=== PATIENT | female | born 1945 | race African-American/Black ===

== ENCOUNTER 2017-11-11 12:07 | Inpatient (IN) | payer MEDICARE, OTHER ==
[2017-11-11] MEDS ORDERED: Ondansetron ODT 4 MG TAB PO PRN (12:45)
[2017-11-11] MEDS ORDERED: Loperamide HCl 2 MG CAP PO PRN (12:45)
[2017-11-11] MEDS ORDERED: Acetaminophen 325 MG TAB PO PRN (12:45)
--- NOTE | 2017-11-11 13:47 | HP ---
HISTORY OF PRESENT ILLNESS: Ms. Jimenez is a very pleasant 75-year-old black female patient of Dr. Bernardo from [place] and [place]. She apparently fell at home, fractured her left hip. She was seen by Dr. Gandara had a total hip replacement done and was transferred to [facility]. Apparently the patient was supposed to be transferred here initially. Nonetheless, the patient came in today fo physical therapy and occupational therapy to increase her strength and her stamina. CURRENT MEDICATIONS: Reveal the patient comes with the following medications: 1. Tylenol 650 q.4. p.r.n. 2. Atorvastatin 80 mg daily. 3. Enoxaparin 40 mg subcu daily until her INR is therapeutic. 4. Fluticasone nasal spray, 1 spray each nostril twice daily. 5. Hydrocodone 5 mg q.8h. p.r.n. 6. Levothyroxine 125 mcg daily. 7. Minoxidil 10 mg b.i.d. 8. Patadine 1 drop each eye b.i.d. 9. Potassium chloride 20 mEq daily. 10. Sertraline 100 mg daily. 11. Torsemide 20 mg b.i.d. 12. Tramadol 50 mg q.8h. p.r.n. 13. Coumadin 7.5 mg daily. PAST MEDICAL HISTORY: 1. The patient has a history of hypertension. 2. Anemia. 3. Chronic kidney disease stage 3. 4. Gastroesophageal reflux disease. 5. Prior cerebrovascular accident x7. 6. Osteoporosis. 7. Congestive heart failure. 8. Sleep apnea. 9. Hypothyroidism. PAST SURGICAL HISTORY: 1. Cholecystectomy. 2. Appendectomy. 3. Bilateral cataract surgery. SOCIAL HISTORY: Reveals the patient does not smoke, does not drink. No recreational drugs. 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 ALLERGIES: The patient is noted to be allergic to ASPIRIN and CODEINE. FAMILY HISTORY: Unremarkable. REVIEW OF SYSTEMS: Reveal the patient denies any significant problems with her eyes, ears, nose or t hroat. She denies any chest discomfort or chest pain or palpitations. She denies respiratory proble ms including cough, cold, congestion or wheezing. She denies any abdominal pain, nausea, vomiting, d iarrhea or constipation. She denies any problems with her urinary tract as far as urgency, frequency , dysuria or hematuria. She denies any musculoskeletal problems including significant arthritis, but she does have pain in the left hip and she was wondering when her cara can come out. The patient denies any endocrine problems besides her hypothyroidism. The patient denies any problems with her skin, although she does note to have somewhat dry skin. The patient states she has had history of de pression in the past and is on sertraline 100 mg daily. She denies any neurological problems other t mcleod her weakness on the right side from all of her strokes being on the right side. PHYSICAL EXAMINATION: VITAL SIGNS: Pending. GENERAL: Reveals a well-developed, well-nourished, very pleasant black female in no apparent distres s at this time. HEENT: Reveals normocephalic, nontraumatic cranium. Pupils are equally round, reactive. Extraocula r movements intact. Nose and throat are slightly dry. The patient has a slight dysarthria. NECK: Supple, without masses, nodes or bruits noted. No jugular venous distention is noted. CHEST: Clear to auscultation. No rales, no rhonchi, no wheezes are heard. HEART: Reveals a regular rate and rhythm without gallops or rubs. There is a 1/6 systolic ejection murmur is noted. ABDOMEN: Obese, soft, nontender, without organomegaly, normal bowel sounds are noted. No rebound or guarding is noted. Bowel sounds are heard in all 4 quadrants. : Deferred. EXTREMITIES: Reveal no clubbing or cyanosis, with trace edema both lower legs. The patient does hav e a rather large 10 inch incision that still has cara in place. We will get those taken out today or tomorrow. IMPRESSION: 1. Status post total left hip done by Dr. Gandara, needs physical therapy and occupational therapy. 2. Generalized weakness. 3. Congestive heart failure, not sure whether it has been diastolic or systolic. 4. Multiple cerebrovascular accidents in the past, the patient reports 7 and she states that is why she is on Coumadin. 5. Hypertension. 6. Chronic kidney disease stage 3. 7. Anemia. 8. Gastroesophageal reflux disease. 9. Osteoporosis. 10. Sleep apnea, which patient refused to wear a CPAP machine. PLAN: 1. Continue to follow the patient for signs and symptoms of congestive heart failure. 2. Continue to monitor the patient's blood pressure closely. 3. Monitor the patient's renal status. 4. Monitor the patient's anticoagulation and when her INR is above 2, discontinue the Lovenox. 5. Monitor the patient for anemia. 6. Stress ulcer prophylaxis. 7. Decubitus precautions. 8. Deep venous thrombosis prophylaxis. 9. Physical therapy and occupational therapy.
[2017-11-11 14:20] LABS: INR-International Normal Ratio 1.9; Prothrombin Time 22.8 SEC (12.0-14.7)
[2017-11-11] MEDS: HYDROcodone/Acetaminophen 5/325 mg Tablet PO SCH ×2 (15:15→21:07)
[2017-11-11] MEDS ORDERED: WARFARIN SODIUM 7.5 MG PO SCH (17:00)
[2017-11-11] MEDS: Warfarin Sodium 2.5 MG TAB PO SCH (17:42)
[2017-11-11] MEDS: Mometasone Furoate 120 PUFF 220 MCG INH SCH (17:43)
[2017-11-11] MEDS ORDERED: Non-Formulary Item 1 EACH (Fluticasone Propionate [Flovent Diskus] 1 SPRAY) IH SCH (21:00)
[2017-11-11] MEDS ORDERED: Non-Formulary Item 1 EACH (Olopatadine Hcl [Pataday] 1 DROP) EA EYE SCH (21:00)
[2017-11-11] MEDS ORDERED: MINOXIDIL 10 MG PO SCH (21:00)
[2017-11-11] MEDS: Torsemide 20 MG TAB PO SCH (21:04)
[2017-11-11] MEDS: Minoxidil 2.5 MG TAB PO SCH (21:04)
[2017-11-11] MEDS: Ketotifen Fumarate 0.025% Ophth Soln 5 ml Bottle EA EYE SCH (21:05)
[2017-11-11] MEDS: Atorvastatin Calcium 40 MG TAB PO SCH (21:05)
[2017-11-11 21:53] LABS: Bilirubin Negative (Negative); Blood, Urine Negative (Negative); Glucose, Urine (Dipstick) Negative (Negative); Leukocyte Negative (Negative); Nitrite Negative (Negative); Protein, Urine (Dipstick) Trace mg/dL (Neg-Trace); Specific Gravity, Urine 1.025 (1.005-1.030)
[2017-11-11 21:56] LABS: Clarity Cloudy (Clear)
[2017-11-11 22:10] LABS: Bacteria/HPF 2+ HPF (None Seen); Hyaline Casts/LPF 0-3 HYALINE CAST LPF (0-3 Hyaline); Squamous Epithelial 0-3 HPF (0-3); WBC/HPF 0-3 HPF (0-3)
[2017-11-12 05:15] LABS: #Basophils 0.1 thou/uL (0.0-0.2); #Eosinphils 0.1 thou/uL (0.0-0.7); #Lymphocytes 2.3 thou/uL (1.20-3.40); #Monocytes 0.7 thou/uL (0.11-0.59); #Neutrophils 4.6 thou/uL (1.40-6.50); %Basophils 0.9 % (0.0-1.0); %Eosinophils 1.2 % (0.0-10.0); %Lymphocytes 29.3 % (21.0-51.0); %Monocytes 9.2 % (0.0-10.0); %Neutrophils 59.3 % (42.0-75.0); Hemoglobin 8.2 g/dL (12.0-16.0); Mean Corpuscular HGB CONC 33.1 g/dL (32.0-36.0); Mean Corpuscular Hemoglobin 28.9 pg (27.0-31.0); Mean Corpuscular Volume 87.6 fl (81.0-99.0); Mean Platelet Volume 7.6 fL (7.4-10.4); Platelet Count 387 thou/uL (130-400); RBC Distribution Width 13.9 % (11.5-14.5); Red Blood Cell (RBC) Count 2.83 mill/uL (4.20-5.40); White Blood Cell (WBC) Count 7.7 thou/uL (4.8-10.8)
[2017-11-12 05:24] LABS: INR-International Normal Ratio 2.1; Prothrombin Time 24.2 SEC (12.0-14.7)
[2017-11-12 05:37] LABS: ALT (SGPT) 20 U/L (8-55); AST (SGOT) 27 U/L (5-34); Albumin 3.1 g/dL (3.4-4.8); Alkaline Phosphatase 86 U/L (40-150); Anion Gap 12 mmol/L (10-20); BUN (Urea Nitrogen) 16 mg/dL (9.8-20.1); Bilirubin, Total 0.5 mg/dL (0.2-1.2); Calc. Creatinine Clearance 60 mL/min (70-130); Calcium 9.4 mg/dL (7.8-10.44); Carbon Dioxide 30 mmol/L (23-31); Chloride 104 mmol/L (98-107); Estimated GFR-MDRD 54; Globulin 3.5 g/dL (2.4-3.5); Glucose 98 mg/dL (83-110); Potassium 4.2 mmol/L (3.5-5.1); Protein, Total 6.6 g/dL (6.0-8.3); Sodium 142 mmol/L (136-145)
[2017-11-12] MEDS: HYDROcodone/Acetaminophen 5/325 mg Tablet PO SCH ×4 (06:09→21:54)
[2017-11-12] MEDS: Milk Of Magnesia 30 ML UDCUP PO PRN (08:29)
[2017-11-12] MEDS: Potassium Chloride 20 MEQ TAB PO SCH (08:30)
[2017-11-12] MEDS: Torsemide 20 MG TAB PO SCH ×2 (08:30→21:32)
[2017-11-12] MEDS: Levothyroxine Sodium 125 MCG TAB PO SCH (08:30)
[2017-11-12] MEDS: Minoxidil 2.5 MG TAB PO SCH ×2 (08:31→21:31)
[2017-11-12] MEDS: Ketotifen Fumarate 0.025% Ophth Soln 5 ml Bottle EA EYE SCH ×2 (08:32→21:31)
[2017-11-12] MEDS ORDERED: Non-Formulary Item 1 EACH (Atorvastatin Calcium [Atorvastatin Calcium] 80 MG) PO SCH (09:00)
[2017-11-12] MEDS ORDERED: Enoxaparin Sodium 40 MG/0.4 ML SYRINGE SC SCH (09:00)
[2017-11-12] MEDS ORDERED: Ergocalciferol 1.25 MG(50,000 UNITS) CAP PO SCH ×2 (13:00→21:00)
--- NOTE | 2017-11-12 13:43 | PRG ---
DATE OF SERVICE: 11/12/2017 HISTORY OF PRESENT ILLNESS: Ms. Jimenez is a very pleasant 75-year-old black female from [facility] that fell at home and fractured her left hip. She was seen by Dr. Gandara and had an arthroplasty done. She has been transferred to [facility], but apparently the patient was supposed to be transf erred to [facility]. Nonetheless, the patient was transferred here for physical science professor apy, occupational therapy to increase her strength and her stamina: VITAL SIGNS: Today reveal blood pressure this morning 111/60, pulse 67-77, respirations 18-20, O2 sa t 96% on room air. T-max 98.3. PHYSICAL EXAMINATION: GENERAL: This is a well-developed, well-nourished, very pleasant black female in no apparent distres s at this time. HEENT: Reveals normocephalic, nontraumatic cranium. Pupils are equally round and reactive. Extraoc ular movements intact. Nose and throat are clear. NECK: Supple, without mass, nodes or bruits. LUNGS: Chest is clear to auscultation with some coarse breath sounds, but much improved. No rales, no rhonchi, no wheezes. No cough is noted. HEART: Regular rate and rhythm without gallops or rubs. There is a 1/6 systolic ejection murmur not ed. ABDOMEN: Obese, soft, nontender, without organomegaly. Normal bowel sounds are noted in all 4 quadr ants. No rebound or guarding is noted. : Deferred. EXTREMITIES: Reveal no clubbing, cyanosis or edema. The patient does have a rather large, tender in cision, cara on that left side. We will get those taken out and call Dr. Gandara's office about stitches. IMPRESSION: 1. Status post total left hip done by Dr. Gandara, needs physical therapy and occupational therapy. 2. Generalized weakness. 3. Congestive heart failure, not sure whether it has been diastolic or systolic. 4. Multiple cerebrovascular accidents in the past. The patient reports 7. 5. Hypertension. 6. Chronic kidney disease stage 3. 7. Anemia. 8. Gastroesophageal reflux. 9. Osteoporosis. 10. Sleep apnea. PLAN: 1. Continue to monitor the patient closely for signs and symptoms of congestive heart failure. 2. Continue to monitor the patient for blood pressure control. 3. Continue to monitor the patient's renal status and her anticoagulation status. INR is 2.1 today. 4. Discontinue the Lovenox. 5. Repeat PT/INR on Thursday. 6. Monitor the patient for anemia. 7. Stress ulcer prophylaxis. 8. Decubitus precautions. 9. Deep venous thrombosis prophylaxis. 10. Physical therapy and occupational therapy.
[2017-11-12] MEDS: Mometasone Furoate 120 PUFF 220 MCG INH SCH (17:36)
[2017-11-12] MEDS: Warfarin Sodium 2.5 MG TAB PO SCH (17:36)
[2017-11-12] MEDS: Atorvastatin Calcium 40 MG TAB PO SCH (21:30)
[2017-11-12] MEDS: traMADol HCl 50 MG TAB PO PRN (21:32)
[2017-11-13 05:30] LABS: Prothrombin Time 22.9 SEC (12.0-14.7)
[2017-11-13] MEDS: HYDROcodone/Acetaminophen 5/325 mg Tablet PO SCH ×3 (05:32→21:08)
[2017-11-13] MEDS: Torsemide 20 MG TAB PO SCH ×2 (09:01→21:07)
[2017-11-13] MEDS: Minoxidil 2.5 MG TAB PO SCH ×2 (09:01→21:07)
[2017-11-13] MEDS: Polyethylene Glycol 3350 17 GM Packet PO SCH (09:01)
[2017-11-13] MEDS: Potassium Chloride 20 MEQ TAB PO SCH (09:02)
[2017-11-13] MEDS: Levothyroxine Sodium 125 MCG TAB PO SCH (09:02)
[2017-11-13] MEDS: Ketotifen Fumarate 0.025% Ophth Soln 5 ml Bottle EA EYE SCH ×2 (09:03→21:05)
--- NOTE | 2017-11-13 14:05 | PRG ---
DATE OF SERVICE: 11/13/2017 HISTORY OF PRESENT ILLNESS: Ms. Jimenez is a very pleasant 75-year-old black female from [facility] that fell at home and fractured her left hip. She was seen by Dr. Gandara and had an arthroplasty done. She had been transferred to [facility] skilled unit, but was supposed to be transferred to [facility]. Eventually, the patient was transferred here for physical therapy and occ upational therapy to increase her strength and her stamina. Ms. Jimenez states she is doing very well. She is eating well and she walked 40 something feet twice today. She has no complaints except the pain which is getting better. VITAL SIGNS: Blood pressure this morning was 107/59, pulse 69-75, respirations 18-20, O2 sat 96% on room air, T-max 99.2. PHYSICAL EXAMINATION: GENERAL: This is a well-developed, well-nourished, slightly obese black female in no apparent distre ss at this time. HEENT: Reveals normocephalic, nontraumatic cranium. Pupils are equal, round, and reactive. Extraoc ular movements intact. Nose and throat are slightly dry, but clear. NECK: Supple, without mass, nodes or bruits. LUNGS: Chest is clear to auscultation. No rales, rhonchi or wheezes are heard. CARDIOVASCULAR: Reveals a regular rate and rhythm with a 1/6 systolic ejection murmur. ABDOMEN: Obese, soft, nontender, without organomegaly. Normal bowel sounds noted in all 4 quadrants . No rebound or guarding is noted. : Deferred. EXTREMITIES: Reveal no clubbing, cyanosis or edema. The patient's incision is nontender. Freedom o n that side to be removed by Dr. Gandara's office when he sees her on Thursday. IMPRESSION: 1. Status post total left hip done by Dr. Gandara, needs physical therapy and occupational therapy. Presently on weightbearing as tolerated. 2. Generalized weakness. 3. Congestive heart failure, not sure whether it has been diastolic or systolic. 4. Multiple cerebrovascular accidents in the past. 5. Hypertension. 6. Chronic kidney disease stage 3. 7. Anemia. 8. Gastroesophageal reflux. 9. Osteoporosis. 10. Sleep apnea. 11. Generalized weakness. PLAN: 1. Continue to follow the patient closely for signs and symptoms of congestive heart failure. 2. Monitor the patient's blood pressure closely. 3. Monitor the patient's renal and anticoagulation status. INR today is 2.0. 4. The Lovenox was discontinued. 5. Repeat PT/INR on Thursday. 6. Monitor the patient for anemia. 7. Stress ulcer prophylaxis. 8. Decubitus precautions. 9. Deep venous thrombosis prophylaxis. 10. Physical therapy and occupational therapy.
[2017-11-13] MEDS: Warfarin Sodium 2.5 MG TAB PO SCH (16:42)
[2017-11-13] MEDS: Mometasone Furoate 120 PUFF 220 MCG INH SCH (17:34)
[2017-11-13] MEDS: Atorvastatin Calcium 40 MG TAB PO SCH (21:07)
[2017-11-13] MEDS: traMADol HCl 50 MG TAB PO PRN (21:07)
[2017-11-14 05:37] LABS: INR-International Normal Ratio 1.9; Prothrombin Time 22.6 SEC (12.0-14.7)
[2017-11-14] MEDS: HYDROcodone/Acetaminophen 5/325 mg Tablet PO SCH ×3 (06:12→21:11)
--- NOTE | 2017-11-14 07:27 | PRG ---
DATE OF SERVICE: 11/14/2017 DATE OF ADMISSION: 11/11/2017 SUBJECTIVE: Ms. Jimenez is a very pleasant 75-year-old white female that unfortunately fell at home a nd fractured her left hip. She was taken to [place] where Dr. Gandara repaired it. She was t ransferred to [facility] and then transferred to [facility] for physica l therapy and occupational therapy to increase her strength and stamina. Ms. Jimenez states she is doing well and has no complaints today. PHYSICAL EXAMINATION: VITAL SIGNS: This morning reveal blood pressure 106/60, pulse 69-73, respirations 18-19, O2 sat 96% on room air, T-max 98.7. GENERAL: This is a well-developed, well-nourished, very pleasant black female in no apparent distres s at this time. HEENT: Reveals normocephalic, nontraumatic cranium. Pupils are equally round and reactive. Extraoc ular movements are intact. Nose and throat are slightly dry, but clear. NECK: Supple, without mass, nodes or bruits. CHEST: Clear to auscultation. No rales, no rhonchi, no wheezes and no cough are heard. HEART: Reveals a regular rate and rhythm with a 1/6 systolic ejection murmur, barely heard. ABDOMEN: Obese, soft, nontender, without organomegaly. Normal bowel sounds are noted. No rebound o r guarding is noted. GENITOURINARY: Deferred. EXTREMITIES: Reveal no clubbing, cyanosis or edema. The patient's incision site looks good. IMPRESSION: 1. Status post total hip done by Dr. Gandara and needs physical therapy and occupational therapy, pre sently on weightbearing. 2. Generalized weakness. 3. Congestive heart failure, not sure whether this is diastolic or systolic. 4. Multiple cerebrovascular accidents x7 in the past. 5. Hypertension. 6. Chronic kidney disease stage 3. 7. Anemia. 8. Gastroesophageal reflux disease. 9. Osteoporosis. 10. Sleep apnea. 11. Generalized weakness. PLAN: 1. The patient is to be seen by Dr. Gandara on Thursday. 2. Continue to follow the patient for signs and symptoms of congestive heart failure. 3. Monitor the patient's blood pressure closely. 4. Monitor the patient's renal anticoagulation status. The patient's INR today was 1.9. 5. Repeat PT/INR tomorrow. 6. Monitor the patient for anemia. 7. Stress ulcer prophylaxis. 8. Decubitus precautions. 9. Deep venous thrombosis prophylaxis. 10. Physical therapy and occupational therapy.
[2017-11-14] MEDS: Torsemide 20 MG TAB PO SCH ×2 (09:52→21:02)
[2017-11-14] MEDS: Minoxidil 2.5 MG TAB PO SCH ×2 (09:52→21:02)
[2017-11-14] MEDS: Levothyroxine Sodium 125 MCG TAB PO SCH (09:53)
[2017-11-14] MEDS: Polyethylene Glycol 3350 17 GM Packet PO SCH (09:53)
[2017-11-14] MEDS: Potassium Chloride 20 MEQ TAB PO SCH (09:53)
[2017-11-14] MEDS: Ketotifen Fumarate 0.025% Ophth Soln 5 ml Bottle EA EYE SCH ×2 (09:54→21:01)
[2017-11-14] MEDS: Warfarin Sodium 2.5 MG TAB PO SCH (18:29)
[2017-11-14] MEDS: Mometasone Furoate 120 PUFF 220 MCG INH SCH (18:30)
[2017-11-14] MEDS: Atorvastatin Calcium 40 MG TAB PO SCH (21:01)
[2017-11-14] MEDS: Milk Of Magnesia 30 ML UDCUP PO PRN (21:01)
[2017-11-15 05:28] LABS: INR-International Normal Ratio 1.9; Prothrombin Time 21.9 SEC (12.0-14.7)
[2017-11-15] MEDS: HYDROcodone/Acetaminophen 5/325 mg Tablet PO SCH ×3 (06:13→21:42)
[2017-11-15] MEDS ORDERED: Torsemide 20 MG TAB PO SCH (07:08)
--- NOTE | 2017-11-15 07:50 | PRG ---
DATE OF SERVICE: 11/15/2017 DATE OF ADMISSION: 11/11/2017 HISTORY OF PRESENT ILLNESS: This is a 72-year-old black female that fell at home and fractured her l eft hip. She was taken to [facility] where Dr. Gandara did repair. She was transferred to [facility] for 3 days and transferred to [facility] for physical th erapy, occupational therapy, and increase in her strength and stamina. Ms. Jimenez thinks she is doing very well and not have any significant pain or any significant problem . She states she is eating well and she did have a good bowel movement last night. PHYSICAL EXAMINATION: VITAL SIGNS: Reveal blood pressure 152/74, pulse 77, respirations 16-19, O2 sat 96%-98%, T-max 99.1. GENERAL: This is a well-developed, well-nourished, slightly obese black female in no apparent distre ss at this time. HEENT: Reveals normocephalic, nontraumatic cranium. Pupils are equally round and reactive. Extraoc ular movements intact. Nose and throat are slightly dry. NECK: Supple, without mass, nodes, or bruits. LUNGS: Chest is clear to auscultation. No cough is noted. No rales, rhonchi, or wheezes are heard. CARDIOVASCULAR: Reveals a regular rate and rhythm without murmurs, gallops, or rubs. A 1/5 systolic ejection murmur is noted barely in the left sternal upper border. EXAM: Deferred. EXTREMITIES: Reveal no clubbing, cyanosis, or edema. IMPRESSION: 1. Status post total hip done by Dr. Gandara, physical therapy and occupational therapy, presently we ightbearing as tolerated. 2. Generalized weakness. 3. Congestive heart failure. 4. Multiple cerebrovascular accidents x7 in the past. 5. Hypertension. 6. Chronic kidney disease, stage 3. 7. Anemia. 8. Gastroesophageal reflux. 9. Osteoporosis. 10. Sleep apnea. 11. Generalized weakness. PLAN: 1. The patient has appointment with Dr. Gandara tomorrow. 2. Continue to follow the patient for signs and symptoms of congestive heart failure. 3. Monitor the patient's blood pressure closely. 4. Monitor patient's renal and anticoagulation status. INR was 1.9 today. 5. Increase her Coumadin from 7.5 mg to 8 mg. 6. Stress ulcer prophylaxis. 7. Monitor the patient for her respiratory status for asthma. 8. Decubitus precautions. 9. DVT precautions. 10. Physical therapy and occupational therapy.
[2017-11-15] MEDS: Potassium Chloride 20 MEQ TAB PO SCH (08:53)
[2017-11-15] MEDS: Torsemide 20 MG TAB PO SCH ×2 (08:53→15:43)
[2017-11-15] MEDS: Levothyroxine Sodium 125 MCG TAB PO SCH (08:53)
[2017-11-15] MEDS: Ketotifen Fumarate 0.025% Ophth Soln 5 ml Bottle EA EYE SCH ×2 (08:53→21:44)
[2017-11-15] MEDS: Polyethylene Glycol 3350 17 GM Packet PO SCH ×2 (08:53→21:41)
[2017-11-15] MEDS: Minoxidil 2.5 MG TAB PO SCH ×2 (10:17→21:42)
[2017-11-15] MEDS: Warfarin Sodium 2 MG TAB PO SCH (17:38)
[2017-11-15] MEDS: Mometasone Furoate 120 PUFF 220 MCG INH SCH (17:40)
[2017-11-15] MEDS: Atorvastatin Calcium 40 MG TAB PO SCH (21:42)
[2017-11-16 05:35] LABS: INR-International Normal Ratio 1.9
[2017-11-16] MEDS: HYDROcodone/Acetaminophen 5/325 mg Tablet PO SCH ×3 (06:15→20:51)
[2017-11-16] MEDS: Levothyroxine Sodium 125 MCG TAB PO SCH (08:28)
[2017-11-16] MEDS: Potassium Chloride 20 MEQ TAB PO SCH (08:28)
[2017-11-16] MEDS: Torsemide 20 MG TAB PO SCH ×2 (08:28→14:51)
[2017-11-16] MEDS: Ketotifen Fumarate 0.025% Ophth Soln 5 ml Bottle EA EYE SCH ×2 (08:29→20:49)
[2017-11-16] MEDS: Polyethylene Glycol 3350 17 GM Packet PO SCH ×2 (08:29→20:51)
[2017-11-16] MEDS: Minoxidil 2.5 MG TAB PO SCH ×2 (08:30→20:50)
[2017-11-16] MEDS: Warfarin Sodium 2 MG TAB PO SCH (17:27)
[2017-11-16] MEDS: Mometasone Furoate 120 PUFF 220 MCG INH SCH (17:27)
[2017-11-16] MEDS: Atorvastatin Calcium 40 MG TAB PO SCH (20:50)
[2017-11-17 05:30] LABS: INR-International Normal Ratio 1.9; Prothrombin Time 22.2 SEC (12.0-14.7)
[2017-11-17] MEDS: HYDROcodone/Acetaminophen 5/325 mg Tablet PO SCH ×3 (06:18→21:12)
[2017-11-17] MEDS: Levothyroxine Sodium 125 MCG TAB PO SCH (09:00)
[2017-11-17] MEDS: Polyethylene Glycol 3350 17 GM Packet PO SCH ×2 (09:00→21:12)
[2017-11-17] MEDS: Minoxidil 2.5 MG TAB PO SCH ×2 (09:00→21:10)
[2017-11-17] MEDS: Torsemide 20 MG TAB PO SCH ×2 (09:00→14:56)
[2017-11-17] MEDS: Potassium Chloride 20 MEQ TAB PO SCH (09:00)
[2017-11-17] MEDS: Ketotifen Fumarate 0.025% Ophth Soln 5 ml Bottle EA EYE SCH ×2 (09:01→21:10)
[2017-11-17] MEDS: Mometasone Furoate 120 PUFF 220 MCG INH SCH (17:10)
[2017-11-17] MEDS: Warfarin Sodium 2 MG TAB PO SCH (17:10)
[2017-11-17] MEDS: Mupirocin 2% Ointment 22 GM Tube TOP SCH (21:10)
[2017-11-17] MEDS: Atorvastatin Calcium 40 MG TAB PO SCH (21:10)
--- NOTE | 2017-11-17 22:06 | PRG ---
DATE OF SERVICE: 11/17/2017 SUBJECTIVE: Ms. Jimenez is a very pleasant 72-year-old black female that fell at home and fractured h er left hip. She was taken to [facility] with Dr. Gandara did an ORIF. She was then even tually transferred to [facility] for physical therapy, occupational therapy to increa se her strength and stamina. Ms. Jimenez to see Dr. Gandara yesterday, actually it is his physician who took out the cara and put Steri-Strips. Did not really say anything else except to continue with her therapy. OBJECTIVE: Vital signs this morning reveal blood pressure is 127/61, pulse 73, respirations 18, O2 s at 96% on room air. T-max is 98.4. PHYSICAL EXAMINATION: GENERAL: This is a well-developed, well-nourished, very pleasant black female in no apparent distres s at this time. HEENT: Reveals normocephalic, nontraumatic cranium. The pupils are equally round and reactive. Ext raocular movements intact. Nose and throat are slightly dry. NECK: Supple, without mass, nodes or bruits. LUNGS: Chest is clear to auscultation. No rales, no rhonchi, no wheezes are heard. CARDIOVASCULAR: Reveals a regular rate and rhythm without murmurs, gallops, or rubs. There is a 1/6 systolic ejection murmur is noted barely in the left sternal upper border. : Deferred. EXTREMITIES: Reveal Steri-Strips across the left incision with cara are removed, which looked exc ellent. IMPRESSION: 1. Status post total hip by Dr. Gandara. 2. Generalized weakness. 3. Congestive heart failure. 4. Multiple cerebrovascular accidents x7 in the past. 5. Hypertension. 6. Chronic kidney disease, stage 3. 7. Anemia. 8. Esophageal reflux. 9. Osteoporosis. 10. Sleep apnea. 11. Generalized weakness. PLAN: 1. Continue physical therapy and occupational therapy. 2. Continue to follow the patient closely for signs and symptoms of congestive heart failure. 3. Monitor the patient's blood pressure closely. 4. Monitor the patient's renal anticoagulation status. 5. INR was again 1.9 today. 6. Coumadin was increased from 7.5-8 mg. 7. Stress ulcer prophylaxis. 8. Monitor the patient's respiratory status for asthma. 9. Decubitus precautions. 10. DVT precautions. 11. Physical therapy and occupational therapy.
[2017-11-18 05:32] LABS: INR-International Normal Ratio 1.8; Prothrombin Time 21.2 SEC (12.0-14.7)
[2017-11-18] MEDS: Polyethylene Glycol 3350 17 GM Packet PO SCH ×2 (08:15→20:23)
[2017-11-18] MEDS: Levothyroxine Sodium 125 MCG TAB PO SCH (08:16)
[2017-11-18] MEDS: Torsemide 20 MG TAB PO SCH ×2 (08:16→13:34)
[2017-11-18] MEDS: Minoxidil 2.5 MG TAB PO SCH ×2 (08:16→20:22)
[2017-11-18] MEDS: Potassium Chloride 20 MEQ TAB PO SCH (08:17)
[2017-11-18] MEDS: HYDROcodone/Acetaminophen 5/325 mg Tablet PO SCH ×3 (08:17→20:22)
[2017-11-18] MEDS: Mupirocin 2% Ointment 22 GM Tube TOP SCH ×2 (08:18→20:21)
[2017-11-18] MEDS: Ketotifen Fumarate 0.025% Ophth Soln 5 ml Bottle EA EYE SCH ×2 (08:19→20:20)
[2017-11-18] MEDS: Mometasone Furoate 120 PUFF 220 MCG INH SCH (17:44)
[2017-11-18] MEDS: Warfarin Sodium 2 MG TAB PO SCH (17:46)
--- NOTE | 2017-11-18 19:11 | PRG ---
DATE OF SERVICE: 11/18/2017 SUBJECTIVE: Ms. Jimenez is a very pleasant 72-year-old black female who was at home when she fell and fractured her hip. She was admitted to [facility] and Dr. Gandara did an ORIF on that left hip. Eventually, she was stabilized and transferred to [facility] for PT, OT, t o increase her strength and stamina. OBJECTIVE: VITAL SIGNS: Today reveal blood pressure this morning was 111/60, pulse 73-92, respirations 20, O2 s at 98% to 93% on room air and T-max 98.9. GENERAL: The patient is a very well-developed, well-nourished, slightly obese black female in no em arent distress at this time. HEENT: Reveals normocephalic and nontraumatic cranium. Pupils are equally round and reactive. Extr aocular movements intact. Nose and throat are slightly dry. NECK: Supple, without mass, nodes or bruits. CHEST: Clear to auscultation. No rales, no rhonchi, no wheezes are heard. HEART: Reveals a regular rate and rhythm without murmurs, gallops or rubs. There is a 1/6 systolic ejection murmur barely heard at the left sternal border today. GENITOURINARY: Deferred. EXTREMITIES: Reveal no clubbing, cyanosis or edema. Left hip incision is well. It is not red, it i s not oozing. Pablo have been removed and Steri-Strips across it. IMPRESSION: 1. Generalized weakness. 2. History of congestive heart failure. 3. Multiple cerebrovascular accidents x7 in the past. 4. Hypertension. 5. Chronic kidney disease stage 3. 6. Anemia. 7. Esophageal reflux. 8. Osteoporosis. 9. Generalized weakness. 10. Sleep apnea. 11. Status post total hip by Dr. Gandara. PLAN: 1. Continue physical therapy and occupational therapy. 2. Follow the patient closely for signs and symptoms of congestive heart failure. 3. Monitor the patient's blood pressure closely. 4. Monitor the patient's INR, which was 1.8 today, although her warfarin has been increased to 8 mg. 5. Stress ulcer prophylaxis. 6. Monitor the patient's respiratory status for asthma. 7. Decubitus precautions. 8. DVT precautions. 9. Physical therapy and occupational therapy.
[2017-11-18] MEDS: Atorvastatin Calcium 40 MG TAB PO SCH (20:21)
[2017-11-19 05:55] LABS: INR-International Normal Ratio 1.6; Prothrombin Time 19.9 SEC (12.0-14.7)
[2017-11-19] MEDS: HYDROcodone/Acetaminophen 5/325 mg Tablet PO SCH ×3 (06:09→21:22)
[2017-11-19] MEDS: Minoxidil 2.5 MG TAB PO SCH ×2 (08:45→21:23)
[2017-11-19] MEDS: Torsemide 20 MG TAB PO SCH ×2 (08:45→15:14)
[2017-11-19] MEDS: Mupirocin 2% Ointment 22 GM Tube TOP SCH ×2 (08:46→21:21)
[2017-11-19] MEDS: Ketotifen Fumarate 0.025% Ophth Soln 5 ml Bottle EA EYE SCH ×2 (08:46→21:23)
[2017-11-19] MEDS: Polyethylene Glycol 3350 17 GM Packet PO SCH ×2 (08:46→21:24)
[2017-11-19] MEDS: Potassium Chloride 20 MEQ TAB PO SCH (08:46)
[2017-11-19] MEDS: Levothyroxine Sodium 125 MCG TAB PO SCH (08:47)
[2017-11-19] MEDS ORDERED: Warfarin Sodium 2 MG TAB PO SCH (10:00)
[2017-11-19] MEDS ORDERED: Enoxaparin Sodium 40 MG/0.4 ML SYRINGE SC PRN (10:04)
[2017-11-19] MEDS ORDERED: Enoxaparin Sodium 40 MG/0.4 ML SYRINGE SC SCH (12:00)
[2017-11-19] MEDS: Ergocalciferol 1.25 MG(50,000 UNITS) CAP PO SCH (13:12)
--- NOTE | 2017-11-19 13:45 | PRG ---
DATE OF SERVICE: 11/19/2017 The patient is a very pleasant, slightly obese black female admitted to [facility] for OR IF after she fell and broke her left hip. Eventually, she was stabilized and transferred to [facility] for PT, OT, and to increase her strength and stamina. The patient states she is doing very well and has no complaints. She is walking much better, but she a little bit slow. VITAL SIGNS: Today reveal blood pressure 118/63, pulse 73, respirations 18-20, O2 sat 95-96% on room air, T-max 99. PHYSICAL EXAMINATION: GENERAL: This is a well-developed, well-nourished, slightly obese black female in no apparent distre ss at this time. HEENT: Reveals normocephalic, nontraumatic cranium. Pupils are equally round and reactive. Extraoc ular movements intact. Nose and throat are slightly dry. NECK: Supple, without mass, nodes or bruits. LUNGS: Chest is clear to auscultation. No rales, no rhonchi, no wheezes are heard. CARDIOVASCULAR: Reveals a regular rate and rhythm without murmurs, gallops or rubs. There is a 1/6 systolic ejection murmur heard barely at the left sternal border today. : Deferred. EXTREMITIES: Reveal no clubbing, cyanosis or edema. Left hip incision is doing well. It is not red , it has Steri-Strips. IMPRESSION: 1. Generalized weakness. 2. History of congestive heart failure. 3. Multiple cerebrovascular accidents x7 in the past. 4. Hypertension. 5. Chronic kidney disease stage 3. 6. Anemia. 7. Gastroesophageal reflux. 8. Osteoporosis. 9. Sleep apnea. 10. Status post total hip by Dr. Gandara. PLAN: 1. Continue physical therapy and occupational therapy. 2. Monitor the patient closely for signs and symptoms of congestive heart failure. 3. Monitor the patient's blood pressure closely. 4. Monitor the patient's INR which was 1.6 today, given her warfarin has been increased to 8 mg beth y. 5. Restart Lovenox 40 subcu daily. 6. When the INR gets to 1.9 or 2.0 we will discontinue the Lovenox. 7. Stress ulcer prophylaxis. 8. Continue to monitor the patient's respiratory status for asthma. 9. Decubitus precautions. 10. DVT precautions. 11. Physical therapy and occupational therapy.
[2017-11-19] MEDS: Warfarin Sodium 2 MG TAB PO SCH (17:43)
[2017-11-19] MEDS: Mometasone Furoate 120 PUFF 220 MCG INH SCH (17:46)
[2017-11-19] MEDS: Atorvastatin Calcium 40 MG TAB PO SCH (21:23)
[2017-11-20 05:43] LABS: #Eosinphils 0.1 thou/uL (0.0-0.7); #Lymphocytes 2.3 thou/uL (1.20-3.40); #Monocytes 0.6 thou/uL (0.11-0.59); #Neutrophils 2.3 thou/uL (1.40-6.50); %Basophils 0.9 % (0.0-1.0); %Lymphocytes 43.6 % (21.0-51.0); %Monocytes 10.4 % (0.0-10.0); %Neutrophils 44.1 % (42.0-75.0); Hemoglobin 8.6 g/dL (12.0-16.0); Mean Corpuscular HGB CONC 31.6 g/dL (32.0-36.0); Mean Corpuscular Hemoglobin 28.3 pg (27.0-31.0); Mean Corpuscular Volume 89.8 fl (81.0-99.0); Mean Platelet Volume 7.4 fL (7.4-10.4); Platelet Count 237 thou/uL (130-400); RBC Distribution Width 14.5 % (11.5-14.5); Red Blood Cell (RBC) Count 3.05 mill/uL (4.20-5.40); White Blood Cell (WBC) Count 5.3 thou/uL (4.8-10.8)
[2017-11-20 05:56] LABS: Anion Gap 11 mmol/L (10-20); BUN (Urea Nitrogen) 18 mg/dL (9.8-20.1); Calc. Creatinine Clearance 69 mL/min (70-130); Calcium 9.2 mg/dL (7.8-10.44); Carbon Dioxide 31 mmol/L (23-31); Chloride 105 mmol/L (98-107); Estimated GFR-MDRD 58; Glucose 94 mg/dL (83-110); Potassium 3.9 mmol/L (3.5-5.1); Sodium 143 mmol/L (136-145)
[2017-11-20] MEDS: HYDROcodone/Acetaminophen 5/325 mg Tablet PO SCH ×3 (06:04→20:38)
[2017-11-20] MEDS: Levothyroxine Sodium 125 MCG TAB PO SCH (06:04)
[2017-11-20] MEDS: Ketotifen Fumarate 0.025% Ophth Soln 5 ml Bottle EA EYE SCH ×2 (09:13→20:41)
[2017-11-20] MEDS: Mupirocin 2% Ointment 22 GM Tube TOP SCH ×2 (09:13→20:41)
[2017-11-20] MEDS: Potassium Chloride 20 MEQ TAB PO SCH (09:14)
[2017-11-20] MEDS: Torsemide 20 MG TAB PO SCH ×2 (09:15→13:46)
[2017-11-20] MEDS: Polyethylene Glycol 3350 17 GM Packet PO SCH ×2 (09:15→20:41)
[2017-11-20] MEDS: Minoxidil 2.5 MG TAB PO SCH ×2 (09:15→20:38)
--- NOTE | 2017-11-20 11:08 | PRG ---
DATE OF SERVICE: 11/20/2017 SUBJECTIVE: The patient feels well, walking in the [place] with therapy, decreasing pain in her left hi p which has been treated for a fracture with open reduction internal fixation by Dr. Gandara. She has history of hypertension, multiple CVAs in the past and chronic kidney disease, but appears to be sta ble from this. She is on bridging therapy with Lovenox and warfarin for deep venous thrombosis proph ylaxis has recently had her warfarin increased to 8 mg daily. OBJECTIVE: VITAL SIGNS: Blood pressure 135/71, temperature 98, pulse 62, respirations 18, O2 sats 96% on room a ir. LUNGS: Lungs are clear. CARDIAC: Cardiac examination shows regular rhythm. ABDOMEN: Soft and nontender with no masses or organomegaly. EXTREMITIES: Display no edema, clubbing or cyanosis. Left hip incision is healing well. ASSESSMENT: 1. Resolving left hip open reduction internal fixation. 2. Stable hypertension. 3. Compensated congestive heart failure. 4. Inadequate anticoagulation on warfarin 8 mg daily, but recently increased so we will continue thi s dose and check PT/INR in the a.m. PLAN: Continue PT, OT. Continue daily PT/INRs. Continue warfarin 8 mg daily. Continue to monitor vital signs and blood pressure during therapy.
[2017-11-20 17:18] LABS: INR-International Normal Ratio 1.9
[2017-11-20] MEDS: Mometasone Furoate 120 PUFF 220 MCG INH SCH (17:37)
[2017-11-20] MEDS: Warfarin Sodium 2 MG TAB PO SCH (17:38)
[2017-11-20] MEDS: Atorvastatin Calcium 40 MG TAB PO SCH (20:38)
[2017-11-21] MEDS: Levothyroxine Sodium 125 MCG TAB PO SCH (06:16)
[2017-11-21] MEDS: HYDROcodone/Acetaminophen 5/325 mg Tablet PO SCH ×3 (06:27→20:45)
--- NOTE | 2017-11-21 07:49 | PRG ---
DATE OF SERVICE: 11/21/2017 SUBJECTIVE: The patient feels well, lying in the bed worked well with therapy yesterday, having decr easing pain, shortness of breath, but is fatigued and is ready to rest this weekend. Denying any rinku rtness of breath or palpitations or chest pain. OBJECTIVE: VITAL SIGNS: Shows blood pressure is 122/70, temperature is 98, pulse 65, respirations 18, O2 sats 9 6% on room air. LUNGS: Clear. CARDIAC: Examination displays regular rhythm. ABDOMEN: Soft and nontender. EXTREMITIES: Left hip incision is healing well. LABORATORY DATA: PT/INR is 1.9 on warfarin 8 mg daily. ASSESSMENT: 1. Left total hip is improving, decreasing pain, increasing ambulation. 2. Deep venous thrombosis prophylaxis requiring full dose of anticoagulation with warfarin and bridg ing therapy with Lovenox, still not quite to goal of 2.0. 3. Generalized weakness, improving greatly. 4. Chronic kidney disease, stable. 5. History of multiple cerebrovascular accidents in the past, resolved. PLAN: 1. Continue PT and OT on Thursday. 2. Repeat prothrombin time in the a.m. and hopefully discontinue Lovenox. 3. Continue to monitor for decompensation congestive heart failure. 4. Continue stress ulcer prophylaxis.
[2017-11-21] MEDS: Polyethylene Glycol 3350 17 GM Packet PO SCH ×2 (08:47→20:42)
[2017-11-21] MEDS: Ketotifen Fumarate 0.025% Ophth Soln 5 ml Bottle EA EYE SCH ×2 (08:48→20:42)
[2017-11-21] MEDS: Mupirocin 2% Ointment 22 GM Tube TOP SCH ×2 (08:48→20:42)
[2017-11-21] MEDS: Potassium Chloride 20 MEQ TAB PO SCH (08:49)
[2017-11-21] MEDS: Torsemide 20 MG TAB PO SCH ×2 (08:49→13:23)
[2017-11-21] MEDS: Minoxidil 2.5 MG TAB PO SCH ×2 (08:49→20:45)
[2017-11-21] MEDS: Warfarin Sodium 2 MG TAB PO SCH (17:35)
[2017-11-21] MEDS: Mometasone Furoate 120 PUFF 220 MCG INH SCH (17:39)
[2017-11-21] MEDS: Atorvastatin Calcium 40 MG TAB PO SCH (20:43)
[2017-11-22] MEDS: Levothyroxine Sodium 125 MCG TAB PO SCH (05:32)
[2017-11-22] MEDS: HYDROcodone/Acetaminophen 5/325 mg Tablet PO SCH ×3 (05:32→20:29)
[2017-11-22 05:58] LABS: INR-International Normal Ratio 1.9
[2017-11-22] MEDS: Mupirocin 2% Ointment 22 GM Tube TOP SCH ×2 (08:17→20:27)
[2017-11-22] MEDS: Ketotifen Fumarate 0.025% Ophth Soln 5 ml Bottle EA EYE SCH ×2 (08:17→20:27)
[2017-11-22] MEDS: Polyethylene Glycol 3350 17 GM Packet PO SCH ×2 (08:17→20:29)
[2017-11-22] MEDS: Potassium Chloride 20 MEQ TAB PO SCH (08:18)
[2017-11-22] MEDS: Torsemide 20 MG TAB PO SCH ×2 (08:18→15:05)
[2017-11-22] MEDS: Minoxidil 2.5 MG TAB PO SCH ×2 (08:18→20:29)
[2017-11-22] MEDS: Warfarin Sodium 2 MG TAB PO SCH (17:03)
[2017-11-22] MEDS: Mometasone Furoate 120 PUFF 220 MCG INH SCH (17:05)
[2017-11-22] MEDS: Atorvastatin Calcium 40 MG TAB PO SCH (20:28)
[2017-11-23] MEDS: HYDROcodone/Acetaminophen 5/325 mg Tablet PO SCH ×4 (06:10→21:19)
[2017-11-23] MEDS: Levothyroxine Sodium 125 MCG TAB PO SCH (06:10)
[2017-11-23] MEDS: Polyethylene Glycol 3350 17 GM Packet PO SCH ×2 (09:11→21:20)
[2017-11-23] MEDS: Ketotifen Fumarate 0.025% Ophth Soln 5 ml Bottle EA EYE SCH ×2 (09:18→21:07)
[2017-11-23] MEDS: Mupirocin 2% Ointment 22 GM Tube TOP SCH ×2 (09:18→21:06)
[2017-11-23] MEDS: Minoxidil 2.5 MG TAB PO SCH ×2 (09:20→21:05)
[2017-11-23] MEDS: Torsemide 20 MG TAB PO SCH ×2 (09:21→13:07)
[2017-11-23] MEDS: Potassium Chloride 20 MEQ TAB PO SCH (09:21)
[2017-11-23 09:34] LABS: INR-International Normal Ratio 1.9; Prothrombin Time 22.2 SEC (12.0-14.7)
[2017-11-23] MEDS ORDERED: Warfarin Sodium 2 MG TAB PO SCH (09:35)
--- NOTE | 2017-11-23 17:28 | PRG ---
DATE OF SERVICE: 11/23/2017 HISTORY OF PRESENT ILLNESS: Ms. Jimenez is a very pleasant 72-year-old black female that fell at home and had a resultant left hip fracture. She was operated on by Dr. Gandara eventually transferred to [facility] for PT, OT, and to increase her strength and stamina. SUBJECTIVE: The patient states she is doing very well and walking around and not having very much pa in at all. PHYSICAL EXAMINATION: VITAL SIGNS: Blood pressure 115/59, pulse 68, respirations 18-20, O2 sat on room air 97%, T-max 98.9 . GENERAL: This is a well-developed, well-nourished, slightly obese black female in no apparent distre ss at this time. HEENT: Reveals normocephalic, nontraumatic cranium. Pupils are equally round and reactive. Extraoc ular movements are intact. Nose and throat are slightly dry. NECK: Supple, without mass, nodes or bruits. CHEST: Clear to auscultation. No rales, no rhonchi, no wheezes are heard. CARDIOVASCULAR: Heart reveals a regular rate and rhythm without murmurs, gallops or rubs. ABDOMEN: Obese, soft, nontender, without organomegaly, normal bowel sounds are noted. No rebound or guarding is noted. : Deferred. EXTREMITIES: Reveal left hip incision is healing well. INR reveals patient's INR again this morning is 1.9, even though the patient takes 7.5 mg of Coumadin at home and has been therapeutic. She has been on 8 mg for the last 8 days and is still subtherapeu tic. We will increase her to 9 mg today. INR is 1.9 on 8 mg. We will increase it to 9 mg. ASSESSMENT: 1. Total left hip gradually improving with increasing mobility and decreasing pain. 2. Deep venous thrombosis prophylaxis, and history of multiple transient ischemic attacks and stroke s in the past, still at 1.9. 3. Chronic kidney disease, stable. 4. History of multiple cerebrovascular accidents in the past. 5. Generalized weakness. 6. Hypertension. 7. Anemia. 8. Gastroesophageal reflux disease. 9. Osteoporosis. 10. Sleep apnea. 11. Status post total hip by Dr. Gandara. PLAN: 1. Continue physical therapy and occupational therapy. 2. Monitor the patient for signs and symptoms of congestive heart failure. 3. We will monitor the patient's blood pressure closely. 4. Continue monitoring the INR, is 1.9 today. We did increase her warfarin to 9 mg. 5. Continue Lovenox until she is therapeutic. 6. Stress ulcer prophylaxis. 7. Monitor patient's respiratory status for asthma. 8. Decubitus precautions. 9. DVT precautions. 10. Physical therapy and occupational therapy.
[2017-11-23] MEDS ORDERED: Warfarin Sodium 5 MG TAB ONE (17:43)
[2017-11-23] MEDS: Mometasone Furoate 120 PUFF 220 MCG INH SCH (18:07)
[2017-11-23] MEDS: Atorvastatin Calcium 40 MG TAB PO SCH (21:05)
[2017-11-24 05:34] LABS: INR-International Normal Ratio 2.2; Prothrombin Time 24.9 SEC (12.0-14.7)
[2017-11-24] MEDS: Levothyroxine Sodium 125 MCG TAB PO SCH (06:27)
[2017-11-24] MEDS: HYDROcodone/Acetaminophen 5/325 mg Tablet PO SCH ×4 (06:28→20:57)
[2017-11-24] MEDS: Mupirocin 2% Ointment 22 GM Tube TOP SCH ×2 (08:18→20:52)
[2017-11-24] MEDS: Minoxidil 2.5 MG TAB PO SCH ×2 (08:18→20:53)
[2017-11-24] MEDS: Potassium Chloride 20 MEQ TAB PO SCH (08:18)
[2017-11-24] MEDS: Torsemide 20 MG TAB PO SCH ×2 (08:18→13:03)
[2017-11-24] MEDS: Polyethylene Glycol 3350 17 GM Packet PO SCH ×2 (08:19→20:57)
[2017-11-24] MEDS: Ketotifen Fumarate 0.025% Ophth Soln 5 ml Bottle EA EYE SCH ×2 (08:19→20:51)
[2017-11-24] MEDS ORDERED: Warfarin Sodium 3 MG TAB PO SCH (17:00)
[2017-11-24] MEDS: Warfarin Sodium 2 MG TAB PO SCH (17:52)
[2017-11-24] MEDS: Mometasone Furoate 120 PUFF 220 MCG INH SCH (17:53)
--- NOTE | 2017-11-24 20:28 | PRG ---
DATE OF SERVICE: 11/24/2017 HISTORY OF PRESENT ILLNESS: The patient is a 72-year-old very pleasant black female that fell at [place] and had a resultant left hip fracture. Dr. Gandara took her to the surgical suite and did open redu ction internal fixation. She was stabilized and transferred to [facility] for physic al therapy and occupational therapy to increase her strength and her stamina. SUBJECTIVE: The patient states she is doing better. She is walking. She was somewhat disappointed yesterday because her INR are still low. This morning, her INR is 2.2. We have discontinued her Lovenox and we will continue her Coumadin on 8 mg daily. OBJECTIVE: VITAL SIGNS: This morning reveal blood pressure 117/56, pulse 63-69, respirations 18, O2 sat 94-99% on room air, T-max 98.7 and T-max 99.1. PHYSICAL EXAMINATION: GENERAL: This is a well-developed, well-nourished, pleasant black female, in no apparent distress at this time. HEENT: Reveals normocephalic, nontraumatic cranium. Pupils equally round and reactive. Extraocular movements intact. Nose and throat are still somewhat dry. NECK: Supple, without mass, nodes or bruits. CHEST: Clear to auscultation. No rales, rhonchi, wheezes or cough is heard. CARDIOVASCULAR: Reveals a regular rate and rhythm without murmurs, gallops or rubs. ABDOMEN: Obese, soft, nontender, without organomegaly, normal bowel sounds are noted. No rebound or guarding is noted. : Deferred. EXTREMITIES: Reveal no clubbing, cyanosis or edema. Left hip incision still looks like she is doing very well. ASSESSMENT : 1. Total left hip, which is improving in with mobility and decreasing pain. 2. The patient's INR is 2.2 this morning. 3. Continue Coumadin at 8 mg daily. 4. Chronic kidney disease. This is stable. 5. The patient has had multiple transient attacks and strokes x7 in the past. We will continue her Coumadin. 6. Generalized weakness. 7. Hypertension. 8. Anemia. 9. Gastroesophageal reflux disease. 10. Osteoporosis. 11. Sleep apnea. PLAN: 1. Continue physical therapy and occupational therapy. 2. Monitor patient for signs and symptoms of congestive heart failure. 3. Monitor the patient's blood pressure closely. 4. Continue to monitor the patient's INR, which is 2.2 today. 5. Warfarin is now at 8 mg daily. 6. Discontinue Lovenox. 7. Stress ulcer prophylaxis. 8. Monitor patient's respiratory status for asthma. 9. Decubitus precautions. 10. DVT precaution. 11. Continue physical therapy and occupational therapy. 12. We did talk with the patient's physical therapist, occupational therapist. After significant en lightening meeting the patient is doing well. We will most likely discharge her Thursday.
[2017-11-24] MEDS: Atorvastatin Calcium 40 MG TAB PO SCH (20:53)
[2017-11-25 05:33] LABS: INR-International Normal Ratio 2.3; Prothrombin Time 26.4 SEC (12.0-14.7)
[2017-11-25] MEDS: HYDROcodone/Acetaminophen 5/325 mg Tablet PO SCH ×3 (06:31→21:45)
[2017-11-25] MEDS: Levothyroxine Sodium 125 MCG TAB PO SCH (06:32)
[2017-11-25] MEDS: Ketotifen Fumarate 0.025% Ophth Soln 5 ml Bottle EA EYE SCH ×2 (09:23→21:41)
[2017-11-25] MEDS: Polyethylene Glycol 3350 17 GM Packet PO SCH ×2 (09:23→21:45)
[2017-11-25] MEDS: Mupirocin 2% Ointment 22 GM Tube TOP SCH ×2 (09:24→21:41)
[2017-11-25] MEDS: Minoxidil 2.5 MG TAB PO SCH ×3 (09:24→22:32)
[2017-11-25] MEDS: Torsemide 20 MG TAB PO SCH ×2 (09:25→14:52)
[2017-11-25] MEDS: Potassium Chloride 20 MEQ TAB PO SCH (09:25)
[2017-11-25] MEDS: Warfarin Sodium 2 MG TAB PO SCH (17:22)
[2017-11-25] MEDS: Mometasone Furoate 120 PUFF 220 MCG INH SCH (17:23)
--- NOTE | 2017-11-25 17:25 | PRG ---
DATE OF SERVICE: 11/01/2017 HISTORY OF PRESENT ILLNESS: Ms. Jimenez is a very pleasant 72-year-old black female that unfortunatel y fell at home and had a resultant left hip fracture. Dr. Gandara took her to the surgical suite when she had open reduction internal fixation done at that left hip. She was stabilized and eventually t ransferred to [facility] for physical therapy, occupational therapy to increase her s trength and her stamina. SUBJECTIVE: The patient states she is doing better. She is walking even better today. Her INR this morning was therapeutic at 2.3. She is now on Coumadin 8 mg daily. OBJECTIVE: VITAL SIGNS: This morning reveal blood pressure 119/58, pulse 67-71, respirations 18-20, O2 sat 93-9 6% on room air. T-max is 98.3. GENERAL: This is a well-developed, well-nourished, very pleasant, slightly obese black female in no apparent distress at this time. HEENT: Reveals normocephalic, nontraumatic cranium. Pupils are equally round and reactive. Extraoc ular movements intact. Nose and throat are moist this morning. NECK: Supple, without mass, nodes, bruits. LUNGS: Chest is clear to auscultation. No rales, no rhonchi, no wheezes are noted. No cough is not ed. HEART: Reveals a regular rate and rhythm without murmurs, gallops or rubs. ABDOMEN: Obese, soft, nontender, without organomegaly, normal bowel sounds are noted. No rebound or guarding is noted. : Deferred. EXTREMITIES: Reveal no clubbing, cyanosis or edema. Left hip is doing well. IMPRESSION: 1. Total left hip improved mobility. 2. INR 2.3 this morning. 3. Coumadin is at 8 mg. 4. Chronic kidney disease, stable. 5. The patient has multiple TIAs and strokes x7 in the past. That is why she is continued on Coumad in by Dr. Bella. 6. Generalized weakness. 7. Hypertension. 8. Anemia. 9. Gastroesophageal reflux disease. 10. Osteoporosis. 11. Sleep apnea. PLAN: 1. Continue physical therapy and occupational therapy. 2. Continue to monitor patient for signs and symptoms of congestive heart failure. 3. Monitor patient's blood pressure closely. 4. Continue to monitor the patient's INR which is 2.3. 5. Warfarin is now at 8 mg. 6. Lovenox has been stopped. 7. Continue stress ulcer prophylaxis. 8. Monitor patient's respiratory status for asthma. 10. Decubitus precautions. 11. DVT precaution. 12. Continue physical therapy and occupational therapy. 13. Discharge expected to be on Thursday.
[2017-11-25] MEDS: Atorvastatin Calcium 40 MG TAB PO SCH (21:42)
[2017-11-26] MEDS: Levothyroxine Sodium 125 MCG TAB PO SCH (06:18)
[2017-11-26] MEDS: HYDROcodone/Acetaminophen 5/325 mg Tablet PO SCH ×3 (06:19→20:54)
[2017-11-26] MEDS: Ketotifen Fumarate 0.025% Ophth Soln 5 ml Bottle EA EYE SCH ×2 (08:23→20:53)
[2017-11-26] MEDS: Mupirocin 2% Ointment 22 GM Tube TOP SCH ×2 (08:23→20:53)
[2017-11-26] MEDS: Polyethylene Glycol 3350 17 GM Packet PO SCH ×2 (08:23→20:54)
[2017-11-26] MEDS: Minoxidil 2.5 MG TAB PO SCH ×2 (08:24→20:52)
[2017-11-26] MEDS: Torsemide 20 MG TAB PO SCH ×2 (08:24→14:42)
[2017-11-26] MEDS: Potassium Chloride 20 MEQ TAB PO SCH (08:24)
[2017-11-26] MEDS: Ergocalciferol 1.25 MG(50,000 UNITS) CAP PO SCH (13:41)
[2017-11-26] MEDS: Warfarin Sodium 2 MG TAB PO SCH (17:57)
[2017-11-26] MEDS: traMADol HCl 50 MG TAB PO PRN (18:00)
[2017-11-26] MEDS: Mometasone Furoate 120 PUFF 220 MCG INH SCH (18:03)
--- NOTE | 2017-11-26 19:32 | PRG ---
DATE OF SERVICE: 11/26/2017 HISTORY OF PRESENT ILLNESS: Ms. Jimenez is a very pleasant 72-year-old black female unfortunately fel l at home and had a resultant left hip fracture. She was taken to the surgical suite by Dr. Nichol anne here she had open reduction internal fixation done. Eventually when she was stabilized, she was andrade sferred to [facility] through [facility] for physical therapy and occupational thera py. We will also follow her PT/INRs from her multiple strokes. SUBJECTIVE: The patient states she is doing well and she is ready, wanted to be discharged tomorrow. OBJECTIVE: VITAL SIGNS: Reveal blood pressure is 117/64, pulse 71-75, respirations 18-20, O2 sat 95%-97% on titi m air, T-max is 99.7. GENERAL: This is a well-developed, well-nourished, very pleasant black female, in no apparent distre ss at this time. HEENT: Reveals normocephalic, nontraumatic cranium. Pupils equal, round, and reactive. Extraocular movements intact. Nose and throat are slightly dry. NECK: Supple, without mass, nodes or bruits. LUNGS: Chest is clear to auscultation. No rales, rhonchi, wheezes or cough is noted. HEART: Reveals a regular rate and rhythm without murmurs, gallops or rubs. ABDOMEN: Obese, soft, nontender, without organomegaly, normal bowel sounds are noted. No rebound or guarding is noted. GENITOURINARY: Deferred. EXTREMITIES: Reveal no clubbing, cyanosis or significant edema. Left hip is doing well. Incision s ite looks good. IMPRESSION: 1. Total left hip improved tremendously. 2. INR this morning was 2.3. 3. Coumadin still at 8 mg. 4. Chronic kidney disease. 5. Multiple transient ischemic attacks and strokes x7 in the past. 6. Generalized weakness. 7. Hypertension. 8. Anemia. 9. Gastroesophageal reflux. 10. Osteoporosis. 11. Sleep apnea. PLAN: 1. Most likely, she will be discharged tomorrow. 2. Continue physical therapy and occupational therapy. 3. Continue to watch the patient for signs and symptoms of congestive heart failure. 4. Monitor the patient's blood work and she will have blood work done tomorrow. 5. Continue the patient's Coumadin at 8 mg. 6. Stress ulcer prophylaxis. 7. Monitor the patient's respiratory status for asthma. 8. Decubitus precautions. 9. Deep venous thrombosis precautions. 10. Continue physical therapy and occupational therapy.
[2017-11-26] MEDS: Atorvastatin Calcium 40 MG TAB PO SCH (20:53)
[2017-11-27] MEDS: Levothyroxine Sodium 125 MCG TAB PO SCH (05:06)
[2017-11-27] MEDS: HYDROcodone/Acetaminophen 5/325 mg Tablet PO SCH (05:07)
[2017-11-27 05:23] VITALS: BMI 34.0
[2017-11-27 05:23] LABS: INR-International Normal Ratio 2.4; Prothrombin Time 26.6 SEC (12.0-14.7)
[2017-11-27 05:28] LABS: Hemoglobin 9.1 g/dL (12.0-16.0); Lymphocytes 56 % (21-51); MDiff Complete? YES; Mean Corpuscular HGB CONC 32.7 g/dL (32.0-36.0); Mean Corpuscular Hemoglobin 29.1 pg (27.0-31.0); Mean Corpuscular Volume 88.8 fl (81.0-99.0); Mean Platelet Volume 8.7 fL (7.4-10.4); Monocytes 8 % (0-10); Neutrophil 36 % (42-75); PLT Morphology Comment Appears Adequate; Platelet Count 128 thou/uL (130-400); RBC Distribution Width 13.6 % (11.5-14.5); RBC Morphology Normal; Red Blood Cell (RBC) Count 3.11 mill/uL (4.20-5.40); White Blood Cell (WBC) Count 5.2 thou/uL (4.8-10.8)
[2017-11-27 05:32] LABS: ALT (SGPT) 14 U/L (8-55); AST (SGOT) 18 U/L (5-34); Albumin 3.2 g/dL (3.4-4.8); Alkaline Phosphatase 159 U/L (40-150); Anion Gap 11 mmol/L (10-20); BUN (Urea Nitrogen) 19 mg/dL (9.8-20.1); Bilirubin, Total 0.3 mg/dL (0.2-1.2); Calc. Creatinine Clearance 71 mL/min (70-130); Calcium 9.1 mg/dL (7.8-10.44); Carbon Dioxide 30 mmol/L (23-31); Chloride 105 mmol/L (98-107); Estimated GFR-MDRD 61; Globulin 2.9 g/dL (2.4-3.5); Glucose 92 mg/dL (83-110); Potassium 3.4 mmol/L (3.5-5.1); Protein, Total 6.1 g/dL (6.0-8.3); Sodium 143 mmol/L (136-145)
--- NOTE | 2017-11-27 07:07 | DIS ---
HISTORY: Ms. Jimenez is a very pleasant 72-year-old black female patient of Dr. Garcia and Dr. Santos from [facility]. She apparently fell at home and fractured her left hip. She was taken to the surgical suite by Dr. Jordyn Reyes and had a total hip replacement done. She was transferred to [facility] and then to [facility] for physical therapy and occupational therapy to increase her strength and stamina. The patient has done exceedingly well and is walking well. Her INR is 2.4 on 8 mg of Coumadin and she has reached maximum medical benefit. She is ready for discharge this morning. PRESENT MEDICATIONS: Will include the following: minoxidil 10 mg twice a day, Torsemide 20 mg b.i.d. Coumadin 8 mg daily, potassium chloride 20 mEq daily, atorvastatin 80 mg daily, levothyroxine 125 mcg daily, sertraline 100 mg each morning and Patadine 1 drop in each eye twice a day. The patient is up and walking well. She does not need her Lovenox since her INR is therapeutic. VITAL SIGNS: Vital signs reveal blood pressure this morning was pending. Blood pressure last night was 153/81, pulse 75-81, respirations 18, O2 sat 96-97 % on room air, T-max 98.5. PHYSICAL EXAMINATION: GENERAL: This is a well-developed, well-nourished, very pleasant black female in no apparent distress at this time. HEENT: Reveals normocephalic, nontraumatic cranium. Pupils are equally round and reactive. Extraocular movements intact. Nose and throat are slightly dry, but clear. NECK: Supple, without mass, nodes, bruits. CHEST: Clear to auscultation. No rales, no rhonchi, no wheezes are heard. No cough is noted. HEART: Regular rate and rhythm without murmurs, gallops or rubs. ABDOMEN: Obese, soft, nontender, without organomegaly, normal bowel sounds are noted. No rebound or guarding is noted. GENITOURINARY: Deferred. EXTREMITIES: No clubbing, cyanosis or edema. Left hip is doing very well. Incision site is good and clean, not draining. IMPRESSION: 1. Total left hip status post surgery by Dr. Gandara. 2. Hypertension. 3. Chronic kidney disease. 4. Multiple transient ischemic attacks and strokes x7 in the past. 5. Anemia. 6. Gastroesophageal reflux. 7. Osteoporosis. 8. Sleep apnea. 9. Generalized weakness. 10. INR this morning was 2.3. The patient is on Coumadin 8 mg daily. We will repeat an INR on her most likely Thursday or Thursday and send that to Dr. Santos/Dr. Garcia at [facility]. PLAN: 1. Discharge this morning. 2. Continue outpatient physical therapy and occupational therapy through [facility] system, but that will be ordered through Dr. Garcia or Dr. Santos. 3. Monitor the patient's Coumadin, INR on Thursday or Thursday. 4. Continue present home medications. 5. Coumadin 8 mg at this time. 6. Decubitus precautions. 7. The patient will be discharged this morning. [facility] SYSTEMMar[facility]
[2017-11-27 07:15] VITALS: BP 126/65; TEMP 98.7
[2017-11-27] MEDS: Ketotifen Fumarate 0.025% Ophth Soln 5 ml Bottle EA EYE SCH (08:34)
[2017-11-27] MEDS: Mupirocin 2% Ointment 22 GM Tube TOP SCH (08:34)
[2017-11-27] MEDS: Minoxidil 2.5 MG TAB PO SCH (08:35)
[2017-11-27] MEDS: Torsemide 20 MG TAB PO SCH (08:35)
[2017-11-27] MEDS: Potassium Chloride 20 MEQ TAB PO SCH (08:35)
[2017-11-27] MEDS: Polyethylene Glycol 3350 17 GM Packet PO SCH (08:36)
== END 2017-11-27 10:31 | disposition home health service (06) | DRG 948 ==
LOC: NAV ACUTE 12:07 → EDBD 12:07
PROVIDERS: ADMIT Family Medicine; ATTEND Family Medicine
DX: R53.1 Weakness (principal); D64.9 Anemia, unspecified; I13.0 Hypertensive heart and chronic kidney disease with heart failure and stage 1 through stage 4 chronic kidney disease, or unspecified chronic kidney disease; I50.9 Heart failure, unspecified; Z79.01 Long term (current) use of anticoagulants; Z86.73 Personal history of transient ischemic attack (TIA), and cerebral infarction without residual deficits; K21.9 Gastro-esophageal reflux disease without esophagitis; M81.0 Age-related osteoporosis without current pathological fracture; G47.30 Sleep apnea, unspecified; N18.3 Chronic kidney disease, stage 3 (moderate); S72.002D Fracture of unspecified part of neck of left femur, subsequent encounter for closed fracture with routine healing; W19.XXXD Unspecified fall, subsequent encounter
CPT/HCPCS: 36415; 80048; 80053; 81001; 85025; 85610; J1650; Q0162

== ENCOUNTER 2018-03-03 19:07 | Inpatient (IN) | payer MEDICARE, OTHER ==
[2018-03-03] MEDS: Minoxidil 2.5 MG TAB PO SCH (20:54)
[2018-03-03] MEDS: oxyCODONE 5 MG TAB PO PRN (20:55)
[2018-03-03] MEDS: Atorvastatin Calcium 40 MG TAB PO SCH (20:55)
[2018-03-04 05:22] LABS: Mean Corpuscular HGB CONC 31.5 g/dL (32.0-36.0); Mean Corpuscular Hemoglobin 26.7 pg (27.0-31.0); Mean Corpuscular Volume 84.8 fL (78.0-98.0); Platelet Count 258 thou/uL (130-400); RBC Distribution Width 14.3 % (11.5-14.5); Red Blood Cell (RBC) Count 3.37 mill/uL (4.20-5.40); White Blood Cell (WBC) Count 6.5 thou/uL (4.8-10.8)
[2018-03-04] MEDS: Levothyroxine Sodium 112 MCG TAB PO SCH (05:22)
[2018-03-04] MEDS: Levothyroxine Sodium 25 MCG TAB PO SCH (05:22)
[2018-03-04] MEDS: oxyCODONE 5 MG TAB PO PRN ×3 (05:22→20:32)
[2018-03-04 05:23] LABS: #Basophils 0.1 thou/uL (0.0-0.2); #Eosinphils 0.1 thou/uL (0.0-0.7); #Lymphocytes 1.9 thou/uL (1.20-3.40); #Monocytes 0.7 thou/uL (0.11-0.59); #Neutrophils 3.8 thou/uL (1.40-6.50); %Basophils 0.8 % (0.0-1.0); %Eosinophils 1.7 % (0.0-10.0); %Lymphocytes 28.9 % (21.0-51.0); %Monocytes 10.4 % (0.0-10.0); %Neutrophils 58.2 % (42.0-75.0); MDiff Complete? YES; Manual Diff?? NO; Mean Platelet Volume 6.7 fL (7.4-10.4)
[2018-03-04 05:31] LABS: Anion Gap 10 mmol/L (10-20); BUN (Urea Nitrogen) 12 mg/dL (9.8-20.1); Calc. Creatinine Clearance 89 mL/min (70-130); Calcium 9.2 mg/dL (7.8-10.44); Carbon Dioxide 27 mmol/L (23-31); Chloride 109 mmol/L (98-107); Estimated GFR-MDRD 84; Glucose 94 mg/dL (83-110); Potassium 4.4 mmol/L (3.5-5.1); Sodium 142 mmol/L (136-145)
[2018-03-04] MEDS: Minoxidil 2.5 MG TAB PO SCH ×2 (08:18→20:33)
[2018-03-04] MEDS: Torsemide 20 MG TAB PO SCH ×2 (08:18→14:42)
[2018-03-04] MEDS: Polyethylene Glycol 3350 17 GM Packet PO SCH (08:18)
[2018-03-04] MEDS: traMADol HCl 50 MG TAB PO PRN (08:19)
[2018-03-04] MEDS ORDERED: Potassium Chloride 20 MEQ TAB PO SCH (09:00)
[2018-03-04] MEDS ORDERED: Alendronate Sodium 70 mg Tablet PO SCH (09:00)
[2018-03-04] MEDS ORDERED: oxyCODONE 5 MG TAB PO PRN (09:41)
[2018-03-04] MEDS ORDERED: traMADol HCl 50 MG TAB PO PRN (09:41)
[2018-03-04] MEDS ORDERED: Milk Of Magnesia 30 ML UDCUP PO PRN (09:43)
[2018-03-04] MEDS ORDERED: Guaifenesin DM 100-10/5 ML UDCUP PO PRN (09:43)
[2018-03-04] MEDS ORDERED: Ondansetron ODT 4 MG TAB PO PRN (09:43)
[2018-03-04] MEDS ORDERED: WARFARIN SODIUM 7.5 MG PO SCH ×2 (09:45→17:00)
[2018-03-04] MEDS ORDERED: WARFARIN SODIUM PO SCH (09:45)
[2018-03-04 13:39] LABS: INR-International Normal Ratio 3.3; Prothrombin Time 34.7 SEC (12.0-14.7)
[2018-03-04] MEDS ORDERED: Warfarin Sodium 2.5 MG TAB PO SCH ×2 (17:00)
[2018-03-04] MEDS ORDERED: Warfarin Sodium 5 MG TAB PO SCH ×2 (17:00)
[2018-03-04] MEDS: Atorvastatin Calcium 40 MG TAB PO SCH (20:33)
[2018-03-04] MEDS ORDERED: MINOXIDIL 10 MG PO SCH (21:00)
[2018-03-04] MEDS ORDERED: Minoxidil 2.5 MG TAB PO SCH (21:00)
[2018-03-04] MEDS ORDERED: Torsemide 20 MG TAB PO SCH (21:00)
--- NOTE | 2018-03-05 02:38 | HP ---
DATE OF ADMISSION: 03/03/2018 DATE OF HISTORY AND PHYSICAL: 03/04/2018 HISTORY OF PRESENT ILLNESS: Ms. Jimenez is a very pleasant 72-year-old black female that was trying to get out of her car when she fell. Unfortunately, she fell and fractured her right hip. She was transported to [facility] where Dr. Gandara did a total hip replacement. The patient eventually was stabilized and transferred to [facility] for physical therapy and occupational therapy to increase her strength and stamina. PAST MEDICAL HISTORY: Positive for: 1. Hypertension. 2. Anemia. 3. Chronic kidney disease stage 3. 4. Gastroesophageal reflux. 5. Prior CVA x7. 6. Osteoporosis. 7. CHF. 8. Sleep apnea. 9. Hypothyroidism. PAST SURGICAL HISTORY: 1. Cholecystectomy. 2. Appendectomy. 3. Bilateral cataract surgery. 4. Total left hip. SOCIAL HISTORY: The patient does not smoke, does not drink. She uses no recreational drugs. 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 ALLERGIES: The patient is allergic to ASPIRIN and CODEINE. PRESENT MEDICATIONS: The patient presently takes the followin. Alendronate 70 mg every Thursday. 2. Atorvastatin 80 mg at bedtime. 3. Ergocalciferol which is Drisdol 1.25 mg each morning. 4. Thyroid which is 137 mg daily. 5. Minoxidil 10 mg b.i.d. 6. Oxycodone IR 5 mg q.4 hours. p.r.n. severe pain. 7. MiraLax 17 g daily. 8. Potassium chloride 20 mEq daily. 9. Sertraline 100 mg daily. 10. Torsemide 20 mg b.i.d. 11. Tramadol 50 mg q.6 hours, p.r.n. 12. Coumadin 11.25 mg every Thursday and 7.5 mg daily every following day. FAMILY HISTORY: Unremarkable. REVIEW OF SYSTEMS: Reveal the patient does complain of some right hip pain from her fracture. Otherwise, she has no complaints. Respiratory: The patient denies any cough, cold, congestion or wheezing. Cardiac: The patient denies any chest pain, palpitations, edema, dyspnea on exertion or shortness of breath. Gastrointestinal: The patient denies any nausea, vomiting, diarrhea, constipation, black or bloody stools. The patient denies any urgency, frequency , dysuria or hematuria. Arthritis: The patient does complain of arthritis, but her major pain is in her right hip, which was fractured. Endocrine: The patient denies any abnormal dyspnea on exertion. Denies any polyphagia, polydipsia or urinary frequency. The patient denies any skin problems including new skin lesions or new skin rash. Neurologic: The patient has no significant focal deficits. Psychologic: The patient has no signs or symptoms of anxiety or depressive disorder. Constitutional: Reveals the patient denies any fever, chills, nausea, vomiting, upper respiratory problems. HEENT: Reveals the patient denies any change in her vision or hearing. PHYSICAL EXAMINATION: VITAL SIGNS: Blood pressure this morning 142/67, pulse 76-81, respirations 16- 20, O2 sat 94-96% on room air, T-max 99.4. GENERAL: This is a well-developed, well-nourished, slightly obese black female in no apparent distress at this time. HEENT: Reveals normocephalic, nontraumatic cranium. Pupils are equally round and reactive. Extraocular movements intact. Nose and throat are slightly dry. NECK: Supple, without mass, nodes or bruits. CHEST: Clear to auscultation. No rales, rhonchi, wheezes or cough is heard. HEART: Reveals a regular rate and rhythm. The patient does have a 1/6 systolic ejection murmur. ABDOMEN: Obese, soft, nontender, without organomegaly, normal bowel sounds are noted. No rebound or guarding is noted. GENITOURINARY: Deferred. EXTREMITIES: Reveal right hip incisions are clean and not significantly draining. [place] are still in place. IMPRESSION: 1. 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 2. Generalized weakness. 3. History of congestive heart failure. 4. Multiple cerebrovascular accidents and transient ischemic attacks in the past. 5. Anticoagulation because of transient ischemic attacks on Coumadin. 6. Hypertension. 7. Chronic kidney disease stage 3. 8. Gastroesophageal reflux disease. 9. Osteoporosis. 10. Anemia. 11. Sleep apnea, but the patient refuses her CPAP machine. 12. Generalized weakness. PLAN: 1. Continue to monitor the patient PT/INR. 2. Follow the patient for signs and symptoms of congestive heart failure. 3. Monitor the patient's blood pressure closely. 4. Monitor the patient's renal indices. 5. Monitor the patient's anemia indices. 6. Stress ulcer prophylaxis. 7. Decubitus precautions. 8. Deep venous thrombosis prophylaxis. 9. Physical therapy and occupational therapy. MTDD
[2018-03-05 05:28] LABS: INR-International Normal Ratio 3.2
[2018-03-05] MEDS ORDERED: Levothyroxine Sodium 25 MCG TAB PO SCH (06:00)
[2018-03-05] MEDS ORDERED: Levothyroxine Sodium 112 MCG TAB PO SCH (06:00)
[2018-03-05] MEDS: Levothyroxine Sodium 112 MCG TAB PO SCH (06:15)
[2018-03-05] MEDS: Levothyroxine Sodium 25 MCG TAB PO SCH (06:16)
[2018-03-05] MEDS: oxyCODONE 5 MG TAB PO PRN ×2 (06:20→13:21)
[2018-03-05] MEDS: Torsemide 20 MG TAB PO SCH ×2 (08:11→13:21)
[2018-03-05] MEDS: traMADol HCl 50 MG TAB PO PRN (08:11)
[2018-03-05] MEDS: Potassium Chloride 20 MEQ TAB PO SCH (08:11)
[2018-03-05] MEDS: Minoxidil 2.5 MG TAB PO SCH ×2 (08:12→20:27)
[2018-03-05] MEDS: Polyethylene Glycol 3350 17 GM Packet PO SCH (08:13)
[2018-03-05] MEDS ORDERED: Polyethylene Glycol 3350 17 GM Packet PO SCH (09:00)
[2018-03-05] MEDS ORDERED: Non-Formulary Item 1 EACH (Levothyroxine Sodium [Synthroid] 137 MCG) PO SCH (09:00)
--- NOTE | 2018-03-05 09:58 | PRG ---
DATE OF SERVICE: 03/05/2018 DATE OF ADMISSION: 03/03/2018 HISTORY OF PRESENT ILLNESS: Ms. Jimenez is a very pleasant 72-year-old white female that was getting out of a car and fell at home. She fractured her right hip and was taken to [facility] w here Dr. Gandara did a total hip replacement. She eventually was stabilized and transferred to [facility]. She is here for physical therapy, occupational therapy to increase her strength and sta juno and pain management. SUBJECTIVE: The patient states she had a good night last night, but this morning she is hurting and she has loose stools. She said her pain medicine takes a little while to start working but finally d oes work. I did talk with physical therapy and they were able to transfer her to the bedside commode without an y problems. LABORATORY DATA: Yesterday revealed a white count of 6,000, hemoglobin 9.0, hematocrit 28.5, platele t count 258,000. Sodium is 142, potassium 4.4, chloride 109, carbon dioxide 27 with a BUN 12, creati nine 0.81. Sugar was 94. Her INR yesterday was 3.3 and INR today is 3.2 and she is on 7.5 mg of Cou madin. We will hold it tonight and restart it tomorrow. PHYSICAL EXAMINATION: VITAL SIGNS: This morning reveals blood pressure 130/71, pulse 78-83, respirations 20-22, O2 sat 94% -96% on room air, T-max 98.9. GENERAL: This is a well-developed, well-nourished, slightly obese black female with some pain in her right hip today. HEENT: Reveals normocephalic, nontraumatic cranium. Pupils equal, round, and reactive. Extraocular movements intact. Nose and throat are slightly dry. NECK: Supple without masses, nodes or bruits. CHEST: Clear to auscultation. No rales, no rhonchi, no wheezes or cough is heard. HEART: Reveals a regular rate and rhythm. The patient has 1/6 systolic ejection murmur. ABDOMEN: Obese, soft, and nontender without organomegaly. Normal bowel sounds are noted in all 4 qu adrants. No rebound or guarding is noted. : Deferred. EXTREMITIES: Reveal hip incision still looking good with minimal drainage. IMPRESSION: 1. 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 2. History of congestive heart failure. 3. Multiple cerebrovascular accidents and TIAs in the past. 4. Coumadin for her anticoagulation because of her multiple TIAs. 5. Hypertension. 6. Chronic kidney disease stage 3. 7. Gastroesophageal reflux disease. 8. Osteoporosis. 9. Anemia. 10. Sleep apnea, but the patient refuses CPAP machine. 11. Generalized weakness. PLAN: 1. Continue to monitor the patient's INR. 2. Monitor the patient for signs and symptoms of congestive heart failure. 3. Monitor the patient's blood pressure closely. 4. Monitor the patient's renal and anemia indices. 5. Stress ulcer prophylaxis. 6. Decubitus precautions. 7. Deep venous thrombosis prophylaxis. 8. Physical therapy and occupational therapy.
[2018-03-05] MEDS: Ondansetron ODT 4 MG TAB PO PRN (10:13)
[2018-03-05] MEDS: Atorvastatin Calcium 40 MG TAB PO SCH (20:27)
[2018-03-06] MEDS: oxyCODONE 5 MG TAB PO PRN ×3 (05:06→20:52)
[2018-03-06] MEDS: Levothyroxine Sodium 25 MCG TAB PO SCH (05:06)
[2018-03-06] MEDS: Levothyroxine Sodium 112 MCG TAB PO SCH (05:06)
[2018-03-06 05:28] LABS: INR-International Normal Ratio 2.9; Prothrombin Time 31.9 SEC (12.0-14.7)
[2018-03-06] MEDS: Ondansetron ODT 4 MG TAB PO PRN (07:56)
[2018-03-06] MEDS: Torsemide 20 MG TAB PO SCH ×2 (08:19→13:40)
[2018-03-06] MEDS: Polyethylene Glycol 3350 17 GM Packet PO SCH (08:19)
[2018-03-06] MEDS: Potassium Chloride 20 MEQ TAB PO SCH (08:19)
[2018-03-06] MEDS: Minoxidil 2.5 MG TAB PO SCH ×2 (08:21→20:52)
[2018-03-06] MEDS: traMADol HCl 50 MG TAB PO PRN (08:25)
[2018-03-06] MEDS: Warfarin Sodium 5 MG TAB PO SCH (18:04)
[2018-03-06] MEDS: Warfarin Sodium 2.5 MG TAB PO SCH (18:04)
[2018-03-06] MEDS: Atorvastatin Calcium 40 MG TAB PO SCH (20:52)
--- NOTE | 2018-03-07 01:38 | PRG ---
DATE OF SERVICE: 03/06/2018 Ms. Jimenez is a very pleasant 72-year-old white female that was getting out of her car, and as she cl osed the car door, she fell. She fractured right hip, was taken to [facility] where Dr. Gandara did a total hip replacement. She was eventually stabilized and transferred to [facility] for physical therapy, occupational therapy to increase her strength and stamina. She is also here for pain management. SUBJECTIVE: The patient states she had a good night and feel a little bit better. She walked to the bathroom and to the door. Pain medicine seems to be working a little better. PHYSICAL EXAMINATION: VITAL SIGNS: Reveal this morning blood pressure 133/68, pulse 72-80, respirations 20-21, O2 sat 92%- 96% on room air, T-max 100. GENERAL: This is a well-developed, well-nourished, slightly obese black female in no apparent distre ss at this time. HEENT: Reveals normocephalic, nontraumatic cranium. Pupils equal, round, reactive. Extraocular mov ements intact. Nose and throat are still dry. NECK: Supple, without mass, nodes or bruits. LUNGS: Chest clear to auscultation. No rales, rhonchi, wheezes or cough is heard. CARDIOVASCULAR: Reveals a regular rate and rhythm. The patient does have a 1/6 systolic ejection mu rmur. ABDOMEN: Soft, nontender, without organomegaly, normal bowel sounds are noted in all 4 quadrants. N o rebound or guarding is noted. GENITOURINARY: Deferred. EXTREMITIES: Reveal hip is doing well without significant swelling. It is covered up. I did not se e her incision today. IMPRESSION: 1. 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 2. History of congestive heart failure. 3. Multiple cerebrovascular accidents and transient ischemic attacks in the past. 4. Coumadin for anticoagulation because of multiple transient ischemic attacks . 5. INR was 2.9 today. She is on 7.5 daily. 6. Hypertension. 7. Chronic kidney disease stage 3. 8. Gastroesophageal reflux disease. 9. Osteoporosis. 10. Anemia. 11. Sleep apnea, but the patient refuses the CPAP machine. 12. Generalized weakness. PLAN: 1. Continue to monitor the patient's INR, it was 2.9 today and she is on 7.5 mg Coumadin daily. 2. Monitor the patient for signs and symptoms of congestive heart failure. 3. Monitor the patient's blood pressure closely. 4. Monitor the patient's renal indices. 5. Stress ulcer prophylaxis. 6. Decubitus precautions. 7. Deep venous thrombosis prophylaxis. 8. Physical therapy and occupational therapy.
[2018-03-07 05:15] LABS: INR-International Normal Ratio 2.9; Prothrombin Time 31.7 SEC (12.0-14.7)
[2018-03-07] MEDS: Levothyroxine Sodium 112 MCG TAB PO SCH (05:40)
[2018-03-07] MEDS: Levothyroxine Sodium 25 MCG TAB PO SCH (05:40)
[2018-03-07] MEDS: Minoxidil 2.5 MG TAB PO SCH ×2 (08:20→21:02)
[2018-03-07] MEDS: Torsemide 20 MG TAB PO SCH ×2 (08:20→14:41)
[2018-03-07] MEDS: Potassium Chloride 20 MEQ TAB PO SCH (08:20)
[2018-03-07] MEDS: Polyethylene Glycol 3350 17 GM Packet PO SCH (08:21)
--- NOTE | 2018-03-07 10:42 | PRG ---
DATE OF SERVICE: 03/07/2018. HISTORY OF PRESENT ILLNESS: Ms. Jimenez is a very pleasant 72-year-old white female that was in her u sual state of being when she got out of a car, closed the door and promptly fell down. She fractured right hip. She was taken to [facility] and had a total hip done by Dr. Gandara. She e ventually was stabilized and transferred to [facility] for physical therapy, occupati onal therapy to increase her strength and stamina here. She was also transferred here for pain manag ement. We are also following her PT and INR. SUBJECTIVE: The patient states she had a really good night, slept well and seems to be doing well. OBJECTIVE: VITAL SIGNS: This morning are pending. Blood pressure last night revealed blood pressure 116/59, pu lse 72-80, respirations 20-21, O2 sat 93%-95% on room air. GENERAL: This is a well-developed, well-nourished, slightly obese black female in no apparent distre ss at this time. HEENT: Reveals normocephalic, nontraumatic cranium. Pupils equal, round, and reactive. Extraocular movements intact. Nose and throat are slightly dry, but clear. NECK: Supple, without mass, nodes or bruits. LUNGS: Chest is clear to auscultation. No rales, rhonchi, or wheezes are heard. Cough is not noted . ABDOMEN: Soft, nontender, without organomegaly, normal bowel sounds are noted. HEART: Reveals a regular rate and rhythm without murmurs, gallops or rubs. Patient does have a 1/6 systolic ejection murmur. GENITOURINARY: Deferred. EXTREMITIES: Reveal no clubbing, cyanosis or edema. The patient is doing well with her hip replacem ent. IMPRESSION: 1. 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 2. History of congestive heart failure. 3. Multiple cerebrovascular accidents and transient ischemic attacks in the past. 4. Anticoagulated by Coumadin with an INR this morning of 2.9. 5. Hypertension. 6. Chronic kidney disease stage 3. 7. Gastroesophageal reflux disease. 8. Osteoporosis. 9. Anemia. 10. Sleep apnea, but the patient does not wear and refuses to wear CPAP. 11. Generalized weakness. PLAN: 1. Continue to monitor the patient's INR. 2. We will monitor the patient for signs and symptoms of congestive heart failure. 3. We will monitor the patient of renal indices. 4. We will monitor the patient's blood pressure closely. 5. Stress ulcer prophylaxis. 6. Decubitus precautions. 7. Deep venous thrombosis prophylaxis. 8. Physical therapy and occupational therapy.
[2018-03-07] MEDS: Warfarin Sodium 2.5 MG TAB PO SCH (16:49)
[2018-03-07] MEDS: Warfarin Sodium 5 MG TAB PO SCH (16:50)
[2018-03-07] MEDS: Atorvastatin Calcium 40 MG TAB PO SCH (21:02)
[2018-03-08] MEDS: Levothyroxine Sodium 112 MCG TAB PO SCH (05:36)
[2018-03-08] MEDS: Levothyroxine Sodium 25 MCG TAB PO SCH (05:36)
[2018-03-08 05:37] LABS: INR-International Normal Ratio 2.8; Prothrombin Time 31.1 SEC (12.0-14.7)
[2018-03-08] MEDS ORDERED: Alendronate Sodium 70 mg Tablet PO SCH (06:00)
[2018-03-08] MEDS: Torsemide 20 MG TAB PO SCH ×2 (08:46→14:29)
[2018-03-08] MEDS: Potassium Chloride 20 MEQ TAB PO SCH (08:46)
[2018-03-08] MEDS: Ergocalciferol 1.25 MG(50,000 UNITS) CAP PO SCH (08:46)
[2018-03-08] MEDS: traMADol HCl 50 MG TAB PO PRN (08:47)
[2018-03-08] MEDS: Polyethylene Glycol 3350 17 GM Packet PO SCH (08:47)
[2018-03-08] MEDS: Minoxidil 2.5 MG TAB PO SCH ×2 (09:00→21:00)
[2018-03-08] MEDS ORDERED: Warfarin Sodium 1.25 MG HALF.TAB PO SCH ×2 (17:00)
[2018-03-08] MEDS ORDERED: Warfarin Sodium 2.5 MG TAB PO SCH (17:00)
[2018-03-08] MEDS ORDERED: Warfarin Sodium 5 MG TAB PO SCH ×2 (17:00)
[2018-03-08] MEDS: Warfarin Sodium 2.5 MG TAB PO SCH (17:20)
[2018-03-08] MEDS: Warfarin Sodium 5 MG TAB PO SCH (17:20)
[2018-03-08] MEDS: Atorvastatin Calcium 40 MG TAB PO SCH (21:01)
[2018-03-08] MEDS: oxyCODONE 5 MG TAB PO PRN (21:01)
--- NOTE | 2018-03-08 21:03 | PRG ---
DATE OF SERVICE: 03/08/2018 DATE OF ADMISSION: 03/03/2018 HISTORY OF PRESENT ILLNESS: Ms. Jimenez is a very pleasant 72-year-old white female that was getting out of her car and when the door closed, she fell down. She had resultant right femoral neck fractur e. She was taken to [facility] and had a total hip done by Dr. Gandara. Eventually, she was stabilized and transferred to [facility] for physical therapy and occupational th erapy. She is here to increase her strength and her stamina. She also has been having some problem with pain management. We think we have that under control. We are also following her PT and INR. SUBJECTIVE: The patient states she had another very good night last night and slept well. She was a sleep and I awakened her this morning. OBJECTIVE: VITAL SIGNS: This morning revealed blood pressure 120/64, pulse 76-82, respirations 19-20, O2 sat 95 % on room air. T-max is 98.9. GENERAL: This is a well-developed, well-nourished, very pleasant black female in no apparent distres s at this time. HEENT: Reveals normocephalic, nontraumatic cranium. Pupils equal, round, and reactive. Extraocular movements intact. Nose and throat are slightly dry, but clear. NECK: Supple, without mass, nodes or bruits. CHEST: Clear to auscultation. No rales, rhonchi, wheezes or cough is heard. HEART: Reveals a regular rate and rhythm without murmurs, gallops or rubs. The patient has a 1/6 sy stolic ejection murmur. ABDOMEN: Slightly obese, soft and nontender, without organomegaly. Normal bowel sounds are noted in all 4 quadrants. : Deferred. EXTREMITIES: Reveal no clubbing, cyanosis or edema. The patient does have some tenderness [facility] over her surgical incision. IMPRESSION: 1. 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 2. History of congestive heart failure. 3. Multiple cerebrovascular accidents and transient ischemic attacks in the past. 4. Anticoagulated on Coumadin with INR of 2.8 this morning. 5. Hypertension. 6. Chronic kidney disease stage 3. 7. Gastroesophageal reflux disease. 8. Osteoporosis. 9. Anemia. 10. Sleep apnea, but patient will not wear CPAP. 11. Generalized weakness. PLAN: 1. Continue to monitor the patient's INR closely. 2. Monitor the patient for signs and symptoms of congestive heart failure. 3. Monitor the patient for renal indices. 4. Monitor the patient's blood pressure closely. 5. Stress ulcer prophylaxis. 6. Decubitus precautions. 7. Deep venous thrombosis prophylaxis. 8. Physical therapy and occupational therapy.
[2018-03-09 05:18] LABS: INR-International Normal Ratio 2.8; Prothrombin Time 31.1 SEC (12.0-14.7)
[2018-03-09] MEDS: Alendronate Sodium 70 mg Tablet PO SCH (06:09)
[2018-03-09] MEDS: Levothyroxine Sodium 25 MCG TAB PO SCH (06:09)
[2018-03-09] MEDS: Levothyroxine Sodium 112 MCG TAB PO SCH (06:09)
[2018-03-09] MEDS: Minoxidil 2.5 MG TAB PO SCH ×2 (09:12→20:57)
[2018-03-09] MEDS: Torsemide 20 MG TAB PO SCH ×2 (09:12→14:17)
[2018-03-09] MEDS: Potassium Chloride 20 MEQ TAB PO SCH (09:12)
[2018-03-09] MEDS: Polyethylene Glycol 3350 17 GM Packet PO SCH (09:13)
[2018-03-09] MEDS: traMADol HCl 50 MG TAB PO PRN (09:13)
--- NOTE | 2018-03-09 13:47 | PRG ---
DATE OF SERVICE: 03/09/2018 DATE OF ADMISSION: 03/03/2018 HISTORY OF PRESENT ILLNESS: Ms. Jimenez is a very pleasant 72-year-old black female that was exiting her car. When she closed the car door, she tripped and fell down. She had a right femoral neck frac ture and was taken to [facility] and had a total hip done by Dr. Gandara. Eventually, she was stabilized and transferred to [facility] for physical therapy and occupational t herapy. She is here to increase her strength and her stamina. The patient states she is doing better and her pain is much better. She walked approximately 30 feet and turn around and came back yesterday. She is looking forward to doing therapy today. Her INR is stable at 2.8. SUBJECTIVE: She has no complaints today. OBJECTIVE: VITAL SIGNS: Reveal blood pressure this morning 114/60, pulse 65-79, respirations 18-19, O2 sat 96%- 97% on room air, T-max 98.9. PHYSICAL EXAMINATION: GENERAL: This is a well-developed, well-nourished, slightly obese black female in no apparent distre ss at this time. HEENT: Reveals normocephalic, nontraumatic cranium. Pupils are equally round and reactive. Extraoc ular movement intact. Nose and throat are slightly dry, but clear. NECK: Supple, without masses, nodes or bruits. CHEST: Clear to auscultation. No rales, no rhonchi, no wheezes are heard. CARDIOVASCULAR: Reveals a regular rate and rhythm. Patient does have 1-2/6 systolic ejection murmur . ABDOMEN: Slightly obese, soft, nontender, without organomegaly. Normal bowel sounds are noted. No rebound or guarding is noted. GENITOURINARY: Deferred. EXTREMITIES: Reveal no clubbing, cyanosis or edema. The patient's incision is getting less tender, not draining. IMPRESSION: 1. 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 2. Prior history of congestive heart failure. 3. Multiple cerebrovascular accidents and transient ischemic attacks in the past. 4. Anticoagulated on Coumadin with INR of 2.8 again this morning. 5. Hypertension. 6. Chronic kidney disease, stage 3. 7. Gastroesophageal reflux disease. 8. Osteoporosis. 9. Anemia. 10. Sleep apnea, but the patient will not wear her CPAP machine. 11. Generalized weakness. PLAN: 1. Continue to monitor the patient's INR, probably every other day now. 2. Monitor the patient for signs and symptoms of congestive heart failure. 3. Continue monitoring the patient's renal indices. 4. Follow the patient's blood pressure closely. 5. Stress ulcer prophylaxis. 6. Decubitus precautions. 7. Deep venous thrombosis prophylaxis. 8. Physical therapy and occupational therapy.
[2018-03-09] MEDS: Warfarin Sodium 2.5 MG TAB PO SCH (17:35)
[2018-03-09] MEDS: Warfarin Sodium 5 MG TAB PO SCH (17:36)
[2018-03-09] MEDS: Atorvastatin Calcium 40 MG TAB PO SCH (20:57)
[2018-03-10] MEDS: Levothyroxine Sodium 25 MCG TAB PO SCH (06:22)
[2018-03-10] MEDS: Levothyroxine Sodium 112 MCG TAB PO SCH (06:22)
[2018-03-10] MEDS: Minoxidil 2.5 MG TAB PO SCH ×2 (08:08→20:19)
[2018-03-10] MEDS: oxyCODONE 5 MG TAB PO PRN ×2 (08:08→18:26)
[2018-03-10] MEDS: Torsemide 20 MG TAB PO SCH ×2 (08:09→18:25)
[2018-03-10] MEDS: Potassium Chloride 20 MEQ TAB PO SCH (08:09)
[2018-03-10] MEDS: Polyethylene Glycol 3350 17 GM Packet PO SCH (08:09)
[2018-03-10] MEDS: Warfarin Sodium 2.5 MG TAB PO SCH (18:25)
[2018-03-10] MEDS: Warfarin Sodium 5 MG TAB PO SCH (18:26)
[2018-03-10] MEDS: Atorvastatin Calcium 40 MG TAB PO SCH (20:20)
--- NOTE | 2018-03-11 01:06 | PRG ---
DATE OF ADMISSION: 03/03/2018 DATE OF SERVICE: 03/10/2018 HISTORY OF PRESENT ILLNESS: Ms. Jimenez is a very pleasant 72-year-old black female that was exiting car when she fell. She had a resultant right femoral neck fracture, was taken to [facility]. Total hip replacement was done by Dr. Gandara. She was stabilized and transferred to [facility] for physical therapy and occupational therapy. The patient states she is doing better and walking slowly better. She has no complaints today. No lab results were done today. PHYSICAL EXAMINATION: VITAL SIGNS: Revealed blood pressure 145/67, pulse 73-96, respirations 16-18, O2 sat 90-96% on room air, T-max 99.5. GENERAL: This is a well-developed, well-nourished, slightly obese black female in no apparent distre ss at this time. HEENT: Reveals normocephalic, nontraumatic cranium. Pupils equally round and reactive. Extraocular movements are intact. Nose and throat are slightly dry. NECK: Supple, without mass, nodes, or bruits. LUNGS: Chest is clear to auscultation. No rales, rhonchi, wheezes, or cough is heard. CARDIOVASCULAR: Reveals a regular rate and rhythm. The patient does have a 1-2/6 systolic ejection murmur. ABDOMEN: Slightly obese, soft, nontender. Normal bowel sounds are noted. No guarding, rebound note d. No organomegaly is noted. GENITOURINARY: Deferred. EXTREMITIES: Reveal some tenderness over the incision which is normal. No drainage or redness. IMPRESSION: 1. 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 2. History of prior congestive heart failure. 3. Multiple cerebrovascular accidents and transient ischemic attacks in the past. 4. Presently on anticoagulant with Coumadin with an INR of 2.8 this morning. 5. Hypertension. 6. Chronic kidney disease, stage 3. 7. Gastroesophageal reflux disease. 8. Osteoporosis. 9. Anemia. 10. Sleep apnea. The patient will not wear a CPAP. 11. Generalized weakness. PLAN: 1. Continue to monitor the patient's PT/INR. 2. Monitor the patient for signs and symptoms of congestive heart failure. 3. Continue to monitor the patient's blood pressure closely and monitor the patient for renal indice s. 4. Stress ulcer prophylaxis. 5. Decubitus precautions. 6. Deep venous thrombosis prophylaxis. 7. Physical therapy and occupational therapy.
[2018-03-11] MEDS: Levothyroxine Sodium 112 MCG TAB PO SCH (05:41)
[2018-03-11] MEDS: Levothyroxine Sodium 25 MCG TAB PO SCH (05:41)
[2018-03-11 05:57] LABS: Prothrombin Time 32.6 SEC (12.0-14.7)
[2018-03-11] MEDS: Minoxidil 2.5 MG TAB PO SCH ×2 (08:19→20:32)
[2018-03-11] MEDS: Polyethylene Glycol 3350 17 GM Packet PO SCH (08:20)
[2018-03-11] MEDS: Torsemide 20 MG TAB PO SCH ×2 (08:20→14:41)
[2018-03-11] MEDS: traMADol HCl 50 MG TAB PO PRN (08:20)
[2018-03-11] MEDS: Potassium Chloride 20 MEQ TAB PO SCH (08:20)
--- NOTE | 2018-03-11 10:24 | PRG ---
DATE OF SERVICE: 03/11/2018 SUBJECTIVE: Ms. 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 Unfortunately, she fell down with a right femoral neck fracture. S he was taken to [facility] and Dr. Gandara did a total hip replacement. She was stabili zed and transferred to [facility] for physical therapy and occupational therapy. The patient unfortunately has been having quite a bit of hip pain, which is much better at this time. LABORATORY DATA: No labs were done today except for her INR, which is 3.0, which is therapeutic. PHYSICAL EXAMINATION: VITAL SIGNS: Reveal blood pressure this morning was 118/71, pulse 74-96, respirations 16-20, O2 sat 94%-96% on room air, T-max 99.5. GENERAL: This is a well-developed, well-nourished, very pleasant black female in no apparent distres s at this time. HEENT: Reveals normocephalic, nontraumatic cranium. Pupils equal, round, and reactive. Extraocular movements intact. Nose and throat are slightly dry. NECK: Supple, without mass, nodes or bruits. CHEST: Clear to auscultation. No rales, rhonchi, wheezes or cough is heard. CARDIOVASCULAR: Heart reveals a regular rate and rhythm. The patient also has a 1-2/6 systolic ejec tion murmur. ABDOMEN: Slightly obese, nontender, without organomegaly, normal bowel sounds are noted in all [address] No organomegaly is noted. No guarding or rebound is noted. GENITOURINARY: Deferred. EXTREMITIES: Reveal continued hip pain, but the patient does have significant knee pain which also n eeds physical therapy. IMPRESSION: 1. 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 2. History of prior congestive heart failure. 3. Multiple cerebrovascular accidents and transient ischemic attacks in the past. 4. Presently on Coumadin with INR of 3.0 this morning. 5. Hypertension. 6. Chronic kidney disease stage 3. 7. Gastroesophageal reflux disease. 8. Osteoporosis. 9. Anemia. 10. Sleep apnea, but the patient will not wear a CPAP machine. 11. Generalized weakness. PLAN: 1. Continue to monitor the patient's PT/INR. 2. Monitor the patient for signs and symptoms of congestive heart failure. 3. Continue to monitor the patient's blood pressure closely. 4. Monitor the patient for renal indices. 5. Stress ulcer prophylaxis. 6. Decubitus precautions. 7. Deep venous thrombosis prophylaxis. 8. Physical therapy and occupational therapy.
[2018-03-11] MEDS: Warfarin Sodium 2.5 MG TAB PO SCH (17:32)
[2018-03-11] MEDS: Warfarin Sodium 5 MG TAB PO SCH (17:32)
[2018-03-11] MEDS: Atorvastatin Calcium 40 MG TAB PO SCH (20:32)
[2018-03-12] MEDS: Levothyroxine Sodium 112 MCG TAB PO SCH (06:16)
[2018-03-12] MEDS: Levothyroxine Sodium 25 MCG TAB PO SCH (06:16)
[2018-03-12] MEDS: Polyethylene Glycol 3350 17 GM Packet PO SCH (08:50)
[2018-03-12] MEDS: Minoxidil 2.5 MG TAB PO SCH ×2 (08:50→20:56)
[2018-03-12] MEDS: Potassium Chloride 20 MEQ TAB PO SCH (08:51)
[2018-03-12] MEDS: Torsemide 20 MG TAB PO SCH ×2 (08:51→14:01)
[2018-03-12] MEDS: traMADol HCl 50 MG TAB PO PRN (08:51)
--- NOTE | 2018-03-12 10:01 | PRG ---
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 The patient unfortunately was at home, got out of her car and fell and br brenna her right femoral neck. She was taken to [facility] where she had a total right hip done by Dr. Gandara. She eventually was stabilized and transferred to [facility] for physical therapy and occupational therapy. Today, the patient states she has a stomachache a lot of nausea. She states she has not had fever or chills. She states she has had her gallbladder drained, but not taken out. OBJECTIVE: VITAL SIGNS: This morning reveal blood pressure 118/71, pulse 74-96, respirations 16-20, O2 sat 94-9 7%. T-max is 99.5. GENERAL: This is a well-developed, well-nourished, slightly obese black female complaining of nausea and of midepigastric abdominal pain. HEENT: Reveals normocephalic, nontraumatic cranium. Pupils equal, round, reactive. Extraocular mov ements intact. Nose and throat are slightly dry. NECK: Supple, without mass, nodes, bruits. CHEST: Clear to auscultation. No rales, rhonchi, wheezes or cough is heard. CARDIOVASCULAR: Reveals a regular rate and rhythm. The patient does have a 1/6 systolic ejection mu rmur. ABDOMEN: Soft. Some slight tenderness mid epigastric area. No right or left lower quadrant pain. Bowel sounds are normal, not hyper or hypo. No organomegaly is noted. No rebound or guarding is not ed. : Deferred. EXTREMITIES: Reveal no clubbing, cyanosis or edema. The patient has continued hip pain which is muc h improved. IMPRESSION: 1. Abdominal pain this morning with nausea. 2. 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 3. History of congestive heart failure. 4. History of multiple cerebrovascular accident and transient ischemic attacks. 5. Presently on Coumadin with INR which is pending this morning. 6. Hypertension. 7. Chronic kidney disease stage 3. 8. Gastroesophageal reflux disease. 9. Osteoporosis. 10. Anemia. 11. Sleep apnea, but the patient will not wear a CPAP. 12. Generalized weakness. PLAN: 1. Comp met and CBC, amylase and lipase this morning. 2. If the patient continues to have abdominal pain, does not resolve, may consider an abdominal ultr asound. 3. Monitor the patient for signs and symptoms of congestive heart failure. 4. Continue to monitor the patient's blood pressure. 5. Monitor the patient for renal indices. 6. Stress ulcer prophylaxis. 7. Decubitus precautions. 8. Deep venous thrombosis prophylaxis. 9. Physical therapy and occupational therapy. 10. Dr. Fred Carrion is presentation specialist this weekend.
[2018-03-12 11:03] LABS: ALT (SGPT) 18 U/L (8-55); AST (SGOT) 26 U/L (5-34); Albumin 3.9 g/dL (3.4-4.8); Alkaline Phosphatase 106 U/L (40-150); Anion Gap 15 mmol/L (10-20); BUN (Urea Nitrogen) 19 mg/dL (9.8-20.1); Bilirubin, Total 0.5 mg/dL (0.2-1.2); Calc. Creatinine Clearance 64 mL/min (70-130); Calcium 10.3 mg/dL (7.8-10.44); Carbon Dioxide 30 mmol/L (23-31); Chloride 99 mmol/L (98-107); Estimated GFR-MDRD 57; Globulin 3.9 g/dL (2.4-3.5); Glucose 94 mg/dL (83-110); Lipase 32 U/L (8-78); Protein, Total 7.8 g/dL (6.0-8.3); Sodium 140 mmol/L (136-145)
[2018-03-12 11:12] LABS: Hemoglobin 10.4 g/dL (12.0-16.0); Mean Corpuscular HGB CONC 30.5 g/dL (32.0-36.0); Mean Corpuscular Hemoglobin 26.2 pg (27.0-31.0); Mean Corpuscular Volume 85.9 fL (78.0-98.0); Mean Platelet Volume 5.7 fL (7.4-10.4); Platelet Count 537 thou/uL (130-400); RBC Distribution Width 14.5 % (11.5-14.5); Red Blood Cell (RBC) Count 3.96 mill/uL (4.20-5.40); White Blood Cell (WBC) Count 10.4 thou/uL (4.8-10.8)
[2018-03-12 11:59] LABS: Lymphocytes 18 % (21-51); MDiff Complete? YES; Monocytes 10 % (0-10); Neutrophil 69 % (42-75); PLT Morphology Comment Appears Increased; Reactive Lymphocytes 3 % (0-10)
[2018-03-12] MEDS: Warfarin Sodium 5 MG TAB PO SCH (17:41)
[2018-03-12] MEDS: Warfarin Sodium 2.5 MG TAB PO SCH (17:41)
[2018-03-12] MEDS: Atorvastatin Calcium 40 MG TAB PO SCH (20:56)
[2018-03-13 05:41] LABS: INR-International Normal Ratio 2.9; Prothrombin Time 30.6 SEC (12.0-14.7)
[2018-03-13] MEDS: Levothyroxine Sodium 112 MCG TAB PO SCH (06:23)
[2018-03-13] MEDS: Levothyroxine Sodium 25 MCG TAB PO SCH (06:23)
[2018-03-13] MEDS: Torsemide 20 MG TAB PO SCH ×2 (08:28→14:17)
[2018-03-13] MEDS: Minoxidil 2.5 MG TAB PO SCH ×2 (08:28→20:10)
[2018-03-13] MEDS: Polyethylene Glycol 3350 17 GM Packet PO SCH (08:28)
[2018-03-13] MEDS: Potassium Chloride 20 MEQ TAB PO SCH (08:28)
[2018-03-13] MEDS: Warfarin Sodium 2.5 MG TAB PO SCH (18:26)
[2018-03-13] MEDS: Warfarin Sodium 5 MG TAB PO SCH (18:26)
[2018-03-13] MEDS: Atorvastatin Calcium 40 MG TAB PO SCH (20:09)
[2018-03-14] MEDS: Levothyroxine Sodium 112 MCG TAB PO SCH (06:28)
[2018-03-14] MEDS: Levothyroxine Sodium 25 MCG TAB PO SCH (06:29)
[2018-03-14] MEDS: Torsemide 20 MG TAB PO SCH ×2 (08:32→14:37)
[2018-03-14] MEDS: Potassium Chloride 20 MEQ TAB PO SCH (08:32)
[2018-03-14] MEDS: Minoxidil 2.5 MG TAB PO SCH ×2 (08:32→20:08)
[2018-03-14] MEDS: Polyethylene Glycol 3350 17 GM Packet PO SCH (08:33)
--- NOTE | 2018-03-14 08:51 | PRG ---
DATE OF SERVICE: 03/13/[address] Melida Silva. SUBJECTIVE: The patient feels well, who is recovering from a right hip surgery with minimal pain. S he has been undergoing PT and OT with good compliance. She has had previous nausea, which has resolv ed. OBJECTIVE: VITAL SIGNS: Show her to have blood pressure of 138/78, temperature 98.9, pulse 78, respirations 19, O2 sats 95% on room air. LUNGS: Clear. CARDIAC EXAMINATION: Showed regular rhythm. ABDOMEN: Soft and nontender with no masses or organomegaly. SKIN/EXTREMITIES: Display healing incision, right lateral hip. LABORATORY DATA: Laboratories show her to have a stable PT of 30.6, INR 2.9. ASSESSMENT: Resolving right total hip; obstructive sleep apnea, not wearing her CPAP; chronic kidney disease, stage 3, stable; recurrent transient ischemic attacks and cerebrovascular accidents, treate d with warfarin by her primary care physician and stable. PLAN: Continue PT/OT. Continue warfarin at a dose of 7.5 mg daily. Continue to monitor for any epi sodes of bleeding. Continue stress ulcer prophylaxis.
--- NOTE | 2018-03-14 09:27 | PRG ---
DATE OF SERVICE: 03/14/[address] Melida Silva. SUBJECTIVE: The patient lying in bed, feels well with no complaints of pain, shortness of breath, ch est pain, nausea. OBJECTIVE: GENERAL: Shows she did walk 235 feet with therapy previous day with no pain and is doing her therapy in the bed with no difficulty. VITAL SIGNS: Show her to have pulse of 72, temperature is 100 last night, respirations 18, O2 sat is 94%, blood pressure 122/68. LUNGS: Clear. CARDIAC EXAMINATION: Shows regular rhythm. ABDOMEN: Soft and nontender. SKIN AND EXTREMITIES: Show no edema, clubbing, cyanosis. MOST RECENT LABORATORIES: Show PT/INR therapeutic at 2.9. White count is normal at 10.4, but up fro m 6.5 last week; hemoglobin 10.4. ASSESSMENT: 1. Resolving right total hip with no symptoms. 2. Low-grade temperature, asymptomatic. We will get a urinalysis and CBC. 3. Recurrent transient ischemic attacks, on warfarin with therapeutic PT/INR yesterday. PLAN: CBC and urinalysis today. Monitor vital signs closely. Continue warfarin 7.5 mg daily and re peat PT/INR tomorrow. Continue to monitor for signs of bleeding. We will not get chest x-rays. Eulalio gs are clear and no symptoms of cough or shortness of breath.
[2018-03-14 10:36] LABS: #Basophils 0.1 thou/uL (0.0-0.2); #Eosinphils 0.1 thou/uL (0.0-0.7); #Monocytes 0.7 thou/uL (0.11-0.59); #Neutrophils 6.4 thou/uL (1.40-6.50); %Basophils 0.6 % (0.0-1.0); %Lymphocytes 21.3 % (21.0-51.0); %Monocytes 7.9 % (0.0-10.0); %Neutrophils 69.2 % (42.0-75.0); Hemoglobin 10.6 g/dL (12.0-16.0); Mean Corpuscular HGB CONC 30.5 g/dL (32.0-36.0); Mean Corpuscular Hemoglobin 26.3 pg (27.0-31.0); Mean Corpuscular Volume 86.2 fL (78.0-98.0); Mean Platelet Volume 5.5 fL (7.4-10.4); Platelet Count 497 thou/uL (130-400); RBC Distribution Width 14.9 % (11.5-14.5); Red Blood Cell (RBC) Count 4.04 mill/uL (4.20-5.40); White Blood Cell (WBC) Count 9.2 thou/uL (4.8-10.8)
[2018-03-14 12:50] LABS: Bilirubin Negative (Negative); Blood, Urine Trace (Negative); Clarity Clear (Clear); Glucose, Urine (Dipstick) Negative (Negative); Leukocyte Negative (Negative); Nitrite Negative (Negative); Protein, Urine (Dipstick) Negative (Neg-Trace); Specific Gravity, Urine 1.015 (1.005-1.030); Urobilinogen 0.2 mg/dL (0.2-1.0); pH, Urine 7.5 (5.0-9.0)
[2018-03-14 13:14] LABS: Bacteria/HPF None Seen HPF (None Seen); RBC/HPF 0-3 HPF (0-3); Squamous Epithelial 0-3 HPF (0-3); WBC/HPF None Seen HPF (0-3)
[2018-03-14] MEDS: Warfarin Sodium 2.5 MG TAB PO SCH (18:07)
[2018-03-14] MEDS: Warfarin Sodium 5 MG TAB PO SCH (18:07)
[2018-03-14] MEDS: Atorvastatin Calcium 40 MG TAB PO SCH (20:08)
[2018-03-15] MEDS: Levothyroxine Sodium 112 MCG TAB PO SCH (06:32)
[2018-03-15] MEDS: Levothyroxine Sodium 25 MCG TAB PO SCH (06:34)
[2018-03-15] MEDS: Ergocalciferol 1.25 MG(50,000 UNITS) CAP PO SCH (08:07)
[2018-03-15] MEDS: Minoxidil 2.5 MG TAB PO SCH ×2 (08:07→20:21)
[2018-03-15] MEDS: Torsemide 20 MG TAB PO SCH ×2 (08:07→16:02)
[2018-03-15] MEDS: Potassium Chloride 20 MEQ TAB PO SCH (08:08)
[2018-03-15] MEDS: Polyethylene Glycol 3350 17 GM Packet PO SCH (08:08)
--- NOTE | 2018-03-15 10:10 | PRG ---
DATE OF SERVICE: 03/15/2018 SUBJECTIVE: Ms. Jimenez is a very pleasant 72-year-old black female that was transferred to [facility] after falling at home and having a resultant right femoral neck fracture. She was taken to [facility] where she had a total hip done by Dr. Gandara. She was stabilized and transf erred to [facility] for PT and OT. The patient states she is feeling better and had quite a bit of lab done last week. PHYSICAL EXAMINATION: VITAL SIGNS: Today reveal blood pressure 130/70, pulse 75-80, respirations 18-20, O2 sat 92%-95% on room air, T-max 99. GENERAL: This is a well-developed, well-nourished, very pleasant 72-year-old black female in no appa rent distress at this time. HEENT: Reveals normocephalic, nontraumatic cranium. Pupils equally round and reactive. Extraocular movements intact. Nose and throat are slightly dry, but clear. NECK: Supple, without mass, nodes or bruits. LUNGS: Chest is clear to auscultation. No rales, rhonchi, wheezes or cough is heard. CARDIOVASCULAR: Heart reveals a regular rate and rhythm. A 1/6 systolic ejection murmur is noted. ABDOMEN: Soft, nontender, without organomegaly. No rebound or guarding is noted. Bowel sounds are normal, not hyperactive or hypoactive. GENITOURINARY: Deferred. EXTREMITIES: Reveal no clubbing, cyanosis or edema. Right hip pain is much improved. The patient w alks 200 plus feet. LABORATORY DATA: Reveals white count 9000, hemoglobin 10.6, hematocrit 34.8, platelet count 497,000. No shift is noted. INR yesterday was 2.9. Sodium 140, potassium 4.0, chloride 99, carbon dioxide 30 with a BUN of 19, creatinine 1.13. Urine was unremarkable. IMPRESSION: 1. 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 2. History of congestive heart failure. 3. History of multiple cerebrovascular accidents and transient ischemic attacks. Presently on Couma din with INR of 2.9. 4. Hypertension. 5. Chronic kidney disease stage 3. 6. Gastroesophageal reflux disease. 7. Osteoporosis. 8. Anemia. 9. Sleep apnea, but the patient refused to wear CPAP. 10. Generalized weakness. PLAN: 1. The patient is doing much better. I did discuss with PT and most likely will discharge on . 2. Continue to monitor the patient for signs and symptoms of congestive heart failure. 3. Monitor the patient's blood pressure. 4. Monitor the patient's renal indices. 5. Stress ulcer prophylaxis. 6. Decubitus precautions. 7. Deep venous thrombosis prophylaxis. 8. PT and OT.
[2018-03-15] MEDS: Warfarin Sodium 2.5 MG TAB PO SCH (18:17)
[2018-03-15] MEDS: Warfarin Sodium 5 MG TAB PO SCH (18:17)
[2018-03-15] MEDS: Atorvastatin Calcium 40 MG TAB PO SCH (20:21)
[2018-03-16] MEDS: Alendronate Sodium 70 mg Tablet PO SCH (05:16)
[2018-03-16] MEDS: Levothyroxine Sodium 112 MCG TAB PO SCH (05:16)
[2018-03-16] MEDS: Levothyroxine Sodium 25 MCG TAB PO SCH (05:16)
[2018-03-16 05:24] LABS: INR-International Normal Ratio 2.6
[2018-03-16 05:37] VITALS: BMI 30.3
[2018-03-16] MEDS: Minoxidil 2.5 MG TAB PO SCH ×2 (08:13→20:49)
[2018-03-16] MEDS: Potassium Chloride 20 MEQ TAB PO SCH (08:13)
[2018-03-16] MEDS: Torsemide 20 MG TAB PO SCH ×2 (08:13→14:07)
[2018-03-16] MEDS: traMADol HCl 50 MG TAB PO PRN (08:14)
[2018-03-16] MEDS: Polyethylene Glycol 3350 17 GM Packet PO SCH (08:14)
--- NOTE | 2018-03-16 09:35 | PRG ---
DATE OF SERVICE: 03/16/2018. SUBJECTIVE: Ms. Jimenez is a very pleasant 72-year-old white female that was at home getting out of h er car when she fell. She had a resultant right femoral neck fracture. She was taken to the surgica l suite by Dr. Gandara at [facility] and transferred to [facility] for p hysical therapy and occupational therapy. The patient states she is doing well and is ready for discharge tomorrow. OBJECTIVE: VITAL SIGNS: Today reveal blood pressure 141/71, pulse 78-81, respirations 18-20, O2 sat 95% on room air, T-max 99.2. GENERAL: This is a well-developed, well-nourished, slightly obese white female in no apparent distre ss at this time. HEENT: Reveals normocephalic, nontraumatic cranium. Pupils equally round and reactive. Extraocular movements intact. Nose and throat are slightly dry. NECK: Supple, without mass, nodes or bruits. LUNGS: Chest is clear to auscultation. No rales, rhonchi or wheezes are heard. No cough is noted. HEART: Reveals a regular rate and rhythm. A 1/6 systolic ejection murmur is noted. ABDOMEN: Soft, nontender, without organomegaly. No rebound or guarding is noted. GENITOURINARY: Deferred. EXTREMITIES: Reveal no clubbing, cyanosis or edema. Right hip pain is actually doing very well. Th e patient is walking 200+ feet. She will be ready for discharge tomorrow. IMPRESSION: 1. Status post right hip done by Dr. Gandara at [facility]. 2. History of congestive heart failure. 3. History of multiple cerebrovascular accidents and transient ischemic attacks, presently on Coumad in with INR this morning pending. 4. Hypertension. 5. Chronic kidney disease stage 3. 6. Gastroesophageal reflux. 7. Osteoporosis. 8. Anemia. 9. Sleep apnea, but the patient refuses to wear CPAP. 10. Generalized weakness. PLAN: 1. The patient is doing much better. The patient will have outpatient physical therapy and occupati onal therapy with [facility]. 2. Continue to monitor the patient for signs and symptoms of congestive heart failure. 3. Continue to monitor the patient's blood pressure. 4. Monitor the patient's renal indices. 5. Stress ulcer prophylaxis. 6. Decubitus precautions. 7. Deep venous thrombosis prophylaxis. 8. Physical therapy and occupational therapy.
[2018-03-16] MEDS: Warfarin Sodium 5 MG TAB PO SCH (17:44)
[2018-03-16] MEDS: Warfarin Sodium 2.5 MG TAB PO SCH (17:44)
[2018-03-16] MEDS: Atorvastatin Calcium 40 MG TAB PO SCH (20:48)
[2018-03-17] MEDS: Levothyroxine Sodium 112 MCG TAB PO SCH (05:26)
[2018-03-17] MEDS: Levothyroxine Sodium 25 MCG TAB PO SCH (05:26)
--- NOTE | 2018-03-17 06:58 | DIS ---
DATE OF DISCHARGE: 03/17/2018 Ms. Jimenez is a very pleasant 72-year-old black female that was at home getting out of her car when s he unexpectedly fell. She fractured her right femoral neck and was taken to [facility] surgical suite by Dr. Gandara. She had open reduction internal fixation done and then was transferred to [facility] for PT and OT. The patient states she is doing well. She has been walking greater than 200 feet. She lives by hers elf, but she feels that she can take care of herself and she has reached maximum hospital benefit at this time. VITAL SIGNS: This morning reveal blood pressure 127/65, pulse 67-78, respirations 18-20, O2 sat 94-9 5% on room air, T-max 99.2. PHYSICAL EXAMINATION: GENERAL: This is a well-developed, well-nourished, very pleasant black female in no apparent distres s at this time. HEENT: Reveals normocephalic, nontraumatic cranium. Pupils are equally round and reactive. Extraoc ular movements are intact. Nose and throat are slightly dry, but clear. NECK: Supple, without mass, nodes or bruits. CHEST: Clear to auscultation. No rales, rhonchi or wheezes are heard. HEART: Regular rate and rhythm, 1/6 systolic ejection murmur is noted and she is followed by Dr. Angelique Rice. ABDOMEN: Soft, nontender, without organomegaly. No rebound or guarding is noted. GENITOURINARY: Deferred. EXTREMITIES: No clubbing, cyanosis or edema. Right hip pain is significantly better. The patient i s walking 200+ feet. She states she is ready for discharge. IMPRESSION: 1. INR yesterday morning 2.6, which is perfect. 2. Status post total right hip done by Dr. Gandara at [facility]. 3. Patient has a followup visit with Dr. Gandara on 04/07/2018 at 3:15 p.m. 4. History of congestive heart failure. 5. History of multiple cerebrovascular accidents and transient ischemic attacks, presently on Coumad in with INR that is pending this morning, but was 2.6 yesterday, has been stable. 6. Hypertension. 7. Chronic kidney disease stage 3. 8. Gastroesophageal reflux disease. 9. Osteoporosis. 10. Anemia. 11. Sleep apnea, but the patient refuses her CPAP. 12. Generalized weakness. 13. Has reached maximum medical benefit. I spent more than 45 minutes in discharge with this patient. PLAN: 1. The patient is doing much improved, much better. 2. She will have outpatient physical therapy. 3. [facility] has been contacted for her PT and OT. 4. Continue to monitor the patient for signs and symptoms of congestive heart failure. 5. Continue to monitor the patient's blood pressure. 6. Monitor the patient's renal indices. 7. Stress ulcer prophylaxis. 8. Decubitus precautions. 9. Deep venous thrombosis prophylaxis. 10. Continued home health physical therapy, occupational therapy through [facility]. DISCHARGE MEDICATIONS: 1. Alendronate 70 mg every Thursday. 2. Atorvastatin 80 mg at bedtime. 3. Ergocalciferol 1.25 mg every Thursday at 9:00 in the morning. 4. Levothyroxine 137.5 mg daily. 5. Minoxidil 10 mg b.i.d. 6. Potassium chloride 20 mEq daily. 7. Sertraline 100 mg daily. 8. Torsemide 20 mg b.i.d. 9. Warfarin 7.5 mg daily.
[2018-03-17 07:04] VITALS: BP 116/62; TEMP 98.1
[2018-03-17] MEDS: Minoxidil 2.5 MG TAB PO SCH (07:46)
[2018-03-17] MEDS: Torsemide 20 MG TAB PO SCH (07:46)
[2018-03-17] MEDS: traMADol HCl 50 MG TAB PO PRN (07:47)
[2018-03-17] MEDS: Potassium Chloride 20 MEQ TAB PO SCH (07:47)
[2018-03-17] MEDS: Polyethylene Glycol 3350 17 GM Packet PO SCH (07:48)
== END 2018-03-17 12:20 | disposition home health service (06) | DRG 560 ==
LOC: NAV ACUTE 19:07
PROVIDERS: ADMIT Family Medicine; ATTEND Family Medicine
DX: S72.001D Fracture of unspecified part of neck of right femur, subsequent encounter for closed fracture with routine healing (principal); I13.0 Hypertensive heart and chronic kidney disease with heart failure and stage 1 through stage 4 chronic kidney disease, or unspecified chronic kidney disease; K21.9 Gastro-esophageal reflux disease without esophagitis; D64.9 Anemia, unspecified; Z86.73 Personal history of transient ischemic attack (TIA), and cerebral infarction without residual deficits; M81.0 Age-related osteoporosis without current pathological fracture; G47.30 Sleep apnea, unspecified; E03.9 Hypothyroidism, unspecified; Z96.643 Presence of artificial hip joint, bilateral; Z90.49 Acquired absence of other specified parts of digestive tract; Z98.42 Cataract extraction status, left eye; Z98.41 Cataract extraction status, right eye; Z79.01 Long term (current) use of anticoagulants; N18.3 Chronic kidney disease, stage 3 (moderate); I50.9 Heart failure, unspecified; N18.9 Chronic kidney disease, unspecified; E66.9 Obesity, unspecified; Z68.30 Body mass index [BMI] 30.0-30.9, adult
CPT/HCPCS: 36415; 80048; 80053; 81003; 81015; 82150; 83690; 85025; 85610; G8978-GP-CM; G8979-GP-CI; Q0162

== ENCOUNTER 2021-08-24 15:19 | Inpatient (IN) | payer MEDICARE, OTHER ==
[2021-08-24] MEDS ORDERED: Polyethylene Glycol 3350 17 GM Packet PO PRN (18:47)
[2021-08-24] MEDS ORDERED: HYDROXYZINE 10 MG PO PRN (19:10)
[2021-08-24] MEDS ORDERED: Promethazine 25 MG TAB PO PRN (19:13)
[2021-08-24] MEDS: Apixaban 5 MG TAB PO SCH (20:18)
[2021-08-24] MEDS: Atorvastatin Calcium 40 MG TAB PO SCH (20:18)
[2021-08-25] MEDS: Levothyroxine Sodium 125 MCG TAB PO SCH (05:29)
[2021-08-25 06:32] LABS: #Eosinphils 0.1 thou/uL (0.0-0.7); #Lymphocytes 2.6 thou/uL (1.20-3.40); #Monocytes 0.5 thou/uL (0.11-0.59); %Basophils 0.8 % (0.0-1.0); %Eosinophils 1.3 % (0.0-10.0); %Lymphocytes 49.7 % (21.0-51.0); %Monocytes 9.6 % (0.0-10.0); %Neutrophils 38.7 % (42.0-75.0); Hemoglobin 12.8 g/dL (12.0-16.0); Mean Corpuscular HGB CONC 32.4 g/dL (32.0-36.0); Mean Corpuscular Hemoglobin 29.7 pg (27.0-31.0); Mean Corpuscular Volume 91.9 fL (78.0-98.0); Mean Platelet Volume 8.2 fL (7.4-10.4); Platelet Count 191 thou/uL (130-400); Red Blood Cell (RBC) Count 4.31 mill/uL (4.20-5.40); White Blood Cell (WBC) Count 5.1 thou/uL (4.8-10.8)
[2021-08-25 06:48] LABS: ALT (SGPT) 18 U/L (8-55); AST (SGOT) 28 U/L (5-34); Albumin 3.6 g/dL (3.4-4.8); Alkaline Phosphatase 70 U/L (40-110); Anion Gap 12 mmol/L (10-20); BUN (Urea Nitrogen) 21 mg/dL (9.8-20.1); Bilirubin, Total 0.5 mg/dL (0.2-1.2); Calc. Creatinine Clearance 58 mL/min (70-130); Calcium 9.8 mg/dL (7.8-10.44); Carbon Dioxide 31 mmol/L (23-31); Chloride 101 mmol/L (98-107); Globulin 3.5 g/dL (2.4-3.5); Glucose 98 mg/dL (83-110); Potassium 3.6 mmol/L (3.5-5.1); Protein, Total 7.1 g/dL (5.8-8.1); Sodium 140 mmol/L (136-145)
[2021-08-25] MEDS: Fluticasone Propionate Nasal Spray 16 gm Bottle NASAL SCH (07:45)
[2021-08-25] MEDS: Apixaban 5 MG TAB PO SCH ×2 (07:45→20:50)
[2021-08-25] MEDS: Potassium Chloride 20 MEQ TAB PO SCH (07:45)
[2021-08-25] MEDS: Amlodipine 10 MG TAB PO SCH (07:46)
[2021-08-25] MEDS: hydrALAZINE 25 MG TAB PO SCH ×3 (07:46→16:56)
[2021-08-25] MEDS: Torsemide 20 MG TAB PO SCH (07:46)
[2021-08-25] MEDS: Losartan Potassium 50 MG TAB PO SCH (07:46)
[2021-08-25] MEDS ORDERED: Potassium Chloride 20 MEQ TAB PO SCH (09:00)
[2021-08-25] MEDS: Atorvastatin Calcium 40 MG TAB PO SCH (20:50)
[2021-08-25 21:43] LABS: SARS-CoV-2 PCR by NAA Not Detected (NotDetected)
[2021-08-26] MEDS: Levothyroxine Sodium 125 MCG TAB PO SCH (05:25)
[2021-08-26] MEDS: hydrALAZINE 25 MG TAB PO SCH ×3 (08:08→16:56)
[2021-08-26] MEDS: Potassium Chloride 20 MEQ TAB PO SCH (08:08)
[2021-08-26] MEDS: Apixaban 5 MG TAB PO SCH ×2 (08:09→20:27)
[2021-08-26] MEDS: Losartan Potassium 50 MG TAB PO SCH (08:09)
[2021-08-26] MEDS: Fluticasone Propionate Nasal Spray 16 gm Bottle NASAL SCH (08:09)
[2021-08-26] MEDS: Amlodipine 10 MG TAB PO SCH (08:09)
[2021-08-26] MEDS: Torsemide 20 MG TAB PO SCH (08:10)
[2021-08-26] MEDS: Atorvastatin Calcium 40 MG TAB PO SCH (20:27)
[2021-08-27] MEDS: Levothyroxine Sodium 125 MCG TAB PO SCH (05:21)
[2021-08-27] MEDS: hydrALAZINE 25 MG TAB PO SCH ×3 (08:11→16:49)
[2021-08-27] MEDS: Potassium Chloride 20 MEQ TAB PO SCH (08:11)
[2021-08-27] MEDS: Fluticasone Propionate Nasal Spray 16 gm Bottle NASAL SCH (08:11)
[2021-08-27] MEDS: Amlodipine 10 MG TAB PO SCH (08:12)
[2021-08-27] MEDS: Torsemide 20 MG TAB PO SCH (08:12)
[2021-08-27] MEDS: Apixaban 5 MG TAB PO SCH ×2 (08:12→20:06)
[2021-08-27] MEDS: Losartan Potassium 50 MG TAB PO SCH (08:13)
[2021-08-27] MEDS: Polyethylene Glycol 3350 17 GM Packet PO PRN (12:27)
[2021-08-27] MEDS: Atorvastatin Calcium 40 MG TAB PO SCH (20:06)
[2021-08-28] MEDS: Levothyroxine Sodium 125 MCG TAB PO SCH (05:13)
[2021-08-28 06:58] LABS: Hemoglobin 11.6 g/dL (12.0-16.0); Platelet Count 186 thou/uL (130-400)
[2021-08-28] MEDS ORDERED: Potassium Chloride 20 MEQ TAB PO SCH (07:30)
[2021-08-28] MEDS: hydrALAZINE 25 MG TAB PO SCH ×3 (08:29→17:19)
[2021-08-28] MEDS: Potassium Chloride 20 MEQ TAB PO SCH (08:29)
[2021-08-28] MEDS: Torsemide 20 MG TAB PO SCH (08:30)
[2021-08-28] MEDS: Amlodipine 10 MG TAB PO SCH (08:30)
[2021-08-28] MEDS: Losartan Potassium 50 MG TAB PO SCH (08:30)
[2021-08-28] MEDS: Apixaban 5 MG TAB PO SCH ×2 (08:30→20:08)
[2021-08-28] MEDS: Fluticasone Propionate Nasal Spray 16 gm Bottle NASAL SCH (08:32)
[2021-08-28] MEDS: Polyethylene Glycol 3350 17 GM Packet PO PRN (12:30)
[2021-08-28] MEDS: Atorvastatin Calcium 40 MG TAB PO SCH (20:08)
[2021-08-29] MEDS: Levothyroxine Sodium 125 MCG TAB PO SCH (05:28)
[2021-08-29] MEDS: Amlodipine 10 MG TAB PO SCH (08:23)
[2021-08-29] MEDS: Losartan Potassium 50 MG TAB PO SCH (08:24)
[2021-08-29] MEDS: hydrALAZINE 25 MG TAB PO SCH ×3 (08:25→16:40)
[2021-08-29] MEDS: Potassium Chloride 20 MEQ TAB PO SCH (08:25)
[2021-08-29] MEDS: Torsemide 20 MG TAB PO SCH (08:25)
[2021-08-29] MEDS: Apixaban 5 MG TAB PO SCH ×2 (08:25→20:22)
[2021-08-29] MEDS: Fluticasone Propionate Nasal Spray 16 gm Bottle NASAL SCH (08:26)
[2021-08-29] MEDS: Atorvastatin Calcium 40 MG TAB PO SCH (20:23)
[2021-08-30] MEDS: Levothyroxine Sodium 125 MCG TAB PO SCH (05:17)
[2021-08-30] MEDS: Potassium Chloride 20 MEQ TAB PO SCH (08:00)
[2021-08-30] MEDS: Losartan Potassium 50 MG TAB PO SCH (08:00)
[2021-08-30] MEDS: Torsemide 20 MG TAB PO SCH (08:01)
[2021-08-30] MEDS: Apixaban 5 MG TAB PO SCH ×2 (08:01→20:21)
[2021-08-30] MEDS: hydrALAZINE 25 MG TAB PO SCH ×3 (08:01→16:59)
[2021-08-30] MEDS: Amlodipine 10 MG TAB PO SCH (08:01)
[2021-08-30] MEDS: Fluticasone Propionate Nasal Spray 16 gm Bottle NASAL SCH (08:02)
[2021-08-30] MEDS: Atorvastatin Calcium 40 MG TAB PO SCH (20:21)
[2021-08-31] MEDS: Levothyroxine Sodium 125 MCG TAB PO SCH (05:21)
[2021-08-31 06:24] LABS: Hemoglobin 12.2 g/dL (12.0-16.0); Platelet Count 227 thou/uL (130-400)
[2021-08-31] MEDS: Potassium Chloride 20 MEQ TAB PO SCH (08:12)
[2021-08-31] MEDS: hydrALAZINE 25 MG TAB PO SCH ×3 (08:12→16:40)
[2021-08-31] MEDS: Amlodipine 10 MG TAB PO SCH (08:12)
[2021-08-31] MEDS: Losartan Potassium 50 MG TAB PO SCH (08:13)
[2021-08-31] MEDS: Apixaban 5 MG TAB PO SCH ×2 (08:13→20:29)
[2021-08-31] MEDS: Fluticasone Propionate Nasal Spray 16 gm Bottle NASAL SCH (08:13)
[2021-08-31] MEDS: Torsemide 20 MG TAB PO SCH (08:14)
[2021-08-31] MEDS: Atorvastatin Calcium 40 MG TAB PO SCH (20:29)
[2021-09-01] MEDS: Levothyroxine Sodium 125 MCG TAB PO SCH (05:08)
[2021-09-01 05:11] VITALS: BMI 29.2
[2021-09-01] MEDS: hydrALAZINE 25 MG TAB PO SCH ×3 (08:29→16:59)
[2021-09-01] MEDS: Potassium Chloride 20 MEQ TAB PO SCH (08:29)
[2021-09-01] MEDS: Amlodipine 10 MG TAB PO SCH (08:30)
[2021-09-01] MEDS: Fluticasone Propionate Nasal Spray 16 gm Bottle NASAL SCH (08:31)
[2021-09-01] MEDS: Apixaban 5 MG TAB PO SCH ×2 (08:31→20:48)
[2021-09-01] MEDS: Torsemide 20 MG TAB PO SCH (08:31)
[2021-09-01] MEDS: Losartan Potassium 50 MG TAB PO SCH (08:31)
[2021-09-01] MEDS: Atorvastatin Calcium 40 MG TAB PO SCH (20:48)
[2021-09-02] MEDS: Levothyroxine Sodium 125 MCG TAB PO SCH (06:02)
[2021-09-02] MEDS: Amlodipine 10 MG TAB PO SCH (07:58)
[2021-09-02] MEDS: Losartan Potassium 50 MG TAB PO SCH (08:00)
[2021-09-02] MEDS: hydrALAZINE 25 MG TAB PO SCH ×2 (08:01→12:07)
[2021-09-02] MEDS: Apixaban 5 MG TAB PO SCH (08:01)
[2021-09-02] MEDS: Torsemide 20 MG TAB PO SCH (08:01)
[2021-09-02] MEDS: Fluticasone Propionate Nasal Spray 16 gm Bottle NASAL SCH (08:02)
[2021-09-02] MEDS: Potassium Chloride 20 MEQ TAB PO SCH (08:04)
[2021-09-02] MEDS ORDERED: Ergocalciferol 1.25 MG(50,000 UNITS) CAP PO SCH (09:00)
[2021-09-02 10:27] VITALS: TEMP 97.6
[2021-09-02 13:44] VITALS: BP 130/72
[2021-09-03] MEDS ORDERED: ALENDRONATE 70 MG TAB PO SCH (06:00)
== END 2021-09-02 14:20 | disposition home health service (06) | DRG 69 ==
LOC: NAV ACUTE 16:54
PROVIDERS: ADMIT Internal Medicine; ATTEND Internal Medicine
DX: G45.9 Transient cerebral ischemic attack, unspecified (principal); I10 Essential (primary) hypertension; E78.5 Hyperlipidemia, unspecified; E03.9 Hypothyroidism, unspecified; G47.33 Obstructive sleep apnea (adult) (pediatric); M81.0 Age-related osteoporosis without current pathological fracture; K21.9 Gastro-esophageal reflux disease without esophagitis; R53.81 Other malaise; Z96.643 Presence of artificial hip joint, bilateral; Z20.822 Contact with and (suspected) exposure to COVID-19; Z86.73 Personal history of transient ischemic attack (TIA), and cerebral infarction without residual deficits; Z90.49 Acquired absence of other specified parts of digestive tract; Z90.710 Acquired absence of both cervix and uterus; Z98.42 Cataract extraction status, left eye; Z98.41 Cataract extraction status, right eye; Z88.5 Allergy status to narcotic agent; Z79.01 Long term (current) use of anticoagulants; Z79.899 Other long term (current) drug therapy
CPT/HCPCS: 36415; 80053; 85014; 85018; 85025; 85049; U0003; U0005